=== PATIENT | female | born 1955 | race Caucasian/White ===

== ENCOUNTER 2017-01-25 09:42 | Inpatient (IN) | payer OTHER, MEDICARE ==
--- NOTE | 2017-01-18 07:45 | MH ---
cc: MARIANA PHILLIPS M.D. DATE OF ADMISSION: 01/27/2017 ADMITTING DIAGNOSIS: 1. Osteoarthritis of the right knee. 2. Patellofemoral disorder right knee. 3. Varus deformity right knee. 4. Pain right knee. 5. Gait disturbance. HISTORY OF PRESENT ILLNESS: The patient is a 61-year-old white female who has had a rather lengthy history of pain involving her right knee extending back for at least five years. The onset of her symptoms occurred when she was negotiating steps and experienced a popping sensation of the right knee with the onset of pain being noted. 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 She conformed to conservative management but noted lingering symptoms and when subsequently seen in February of 2012, x-ray studies were completed that did reveal obvious narrowing throughout the medial compartment associated with hypertrophic bony reaction involving the medial femoral condyle. At that time, the patient was prescribed Mobic and initiated into a course of physical therapy while being followed on an outpatient basis. Initially she felt there was a trend of improvement with regards to the medication as prescribed and thus elected to continue with conservative modalities. Unfortunately her symptoms gradually began to recur and when seen in follow-up several months thereafter, she was treated with an intraarticular steroid injection. Initially there was once again a trend of improvement for several months until the benefit of the injection began to wear off and thus had been recommended that the patient might consider proceeding with an MRI scan for further disposition. Unfortunately she elected to not proceed in this direction and continued with conservative management and subsequently underwent alternative orthopedic evaluation in August of 2015 at which time the patient reports that she was diagnosed as having moderate osteoarthritis of both knees with suspected multiple loose bodies on the right side. She apparently was prescribed hydrocodone for pain management. She returned to the undersigned physician in February of this past year and at that time reported ongoing pain involving both knees with x-ray studies revealing obvious degenerative changes throughout the medial compartment and secondary involvement patellofemoral articulation associated with a varus deformity. Findings and treatment options were reviewed including consideration for operative intervention with emphasis being made that the decision to proceed with surgery would be left entirely to the patient's discretion. She considered her options in this regard and subsequently indicated her desire to proceed with operative treatment, and in July of this past year she did undergo a left total knee arthroplasty, which was completed in an uncomplicated manner with an uneventful recovery being noted thereafter. With the passage of time; however, she became increasingly more symptomatic with pain involving her right knee and given a favorable response that she had noted from previous surgery had expressed her desire to proceed with similar treatment involving her right knee. Her current x-ray studies have confirmed the presence of significant degenerative changes throughout the medial compartment with associated varus deformity and secondary involvement of the patellofemoral articulation. In compliance with the patient's wishes, she has currently been scheduled for admission in order that right total knee replacement be completed. PAST MEDICAL HISTORY, HOSPITALIZATIONS AND SURGERIES: Her past medical history, hospitalizations and surgeries in addition to the left total knee arthroplasty described have included: 1. An abdominal hysterectomy. 2. Bilateral augmentation mammoplasty. 3. Tonsillectomy. 4. Laparotomy for history of abdominal adhesions. 5. Medical management for a suspected stroke. 6. Seizure disorder. The patient's medical illnesses include: 1. Bipolar disorder. 2. Fibromyalgia. 3. History of chronic neck and low back pain. MEDICATIONS: Her current medications are: 1. Meloxicam 10 milligrams daily. 2. Zolpidem 5 milligrams daily. 3. Loxapine 40 milligrams daily. 4. Trazodone 50 milligrams at bedtime. 5. Ziprasidone 20 milligrams twice daily. ALLERGIES: THE PATIENT DENIES ANY KNOWN DRUG ALLERGIES. REVIEW OF SYSTEMS: She wears glasses for reading purposes. There has been a history of headaches that she relates to degenerative disk disease of the cervical spine. There is a history of a seizure in the past and intermittent dizziness. Auditory acuity intact. No tinnitus. No bleeding gums or dysphagia. No cough, shortness of breath, upper respiratory infection, pneumonia or tuberculosis. No angina or heart disease. Appetite good. She has occasional constipation treated with [id number] products. No hepatitis, gallbladder disease, ulcers or hemorrhoids. No urinary tract infection. No kidney stones. She has had a fracture of the fifth metacarpal of her right hand treated nonoperatively and psychiatric intervention for bipolar disorder. Her remaining review of systems is unremarkable and noncontributory. FAMILY HISTORY: The patient has been for 12 years, this being a third marriage. Her has been treated in the recent past for history of osteomyelitis of his thoracic spine. No children. Family history is positive for diabetes, skin and breast cancer and multiple sclerosis. SOCIAL HISTORY: The patient completed a high school education. She is unemployed. She admits to at least a 30 pack/year use of tobacco averaging approximately 10 cigarettes daily. Ethanol consumption involving the cocktail several days per week. PHYSICAL EXAMINATION: HEIGHT: 5 feet 2 inches. WEIGHT: 107 pounds. GENERAL: An alert, oriented responsive 61-year-old white female who sits quietly upon examination table with no apparent distress. HEAD, EYES, EARS, NOSE, THROAT: Pupils are equal, round and reactive to light. Extraocular movements full. Sclerae clear. External nares clear. External auditory canals clear. Dental intact. Mucous membranes pink and moist. Pharynx clear. NECK: Supple. There is some limitation of mobility at the extremes of motion indicated to be chronic in nature. Carotid pulse bilaterally. Trachea midline. Thyroid without enlargement. LUNGS: Clear to auscultation and percussion. No CVA tenderness. No discomfort throughout the dorsal or lumbar spine. HEART: Regular rhythm. No murmur or gallop. ABDOMEN: Soft, nontender. Bowel sounds present. PELVIC: Per primary care physician. EXTREMITIES: Right knee. No obvious swelling or effusion. There is an obvious varus deformity. Slight medial joint line tenderness without palpable abnormality. Apprehension and compression signs negative. Limited mobility in the 100+ degree range of flexion with pain at the extreme of motion. No collateral ligamentous instability. Russell test and draw sign negative. Pivot shift and Priscila sign positive for medial compartment pain. Straight-leg raising unremarkable at 80 degrees. Satisfactory mobility of the right hip with no associated pain. Mild antalgic gait. NEUROLOGIC: Cranial nerves II-XII grossly intact. IMPRESSION: 1. Osteoarthritis right knee. 2. Patellofemoral disorder right knee. 3. Varus deformity right knee. 4. Pain right knee. 5. Gait disturbance. PLAN: Right total knee arthroplasty. The nature of the planned surgical procedure, the potential complications and risks associated, the expectations of surgery and the consent form have been thoroughly reviewed with Rocio prior to admission to the hospital. She has indicated her full understanding regarding all of the above and has given consent to proceed with treatment as outlined. Medical evaluation and clearance for surgery will be completed by her primary care physician, Dr. Juan Bonner. MD SHAKIRA Guillen/JASON /4:42 PM /7:45 AM
[~2017-01-25] VITALS: Ht 157.5 cm; Wt 49.5 kg
[2017-01-25] MEDS ORDERED: GABA600T PO (15:37)
[2017-01-25] MEDS ORDERED: HYDR-3516 PO (15:37)
[2017-01-25] MEDS ORDERED: ZIPR1CAP8 PO (15:37)
[2017-01-25] MEDS ORDERED: ZOLP5TAB3 PO (15:37)
[2017-01-25] MEDS ORDERED: ASPI325T PO (15:37)
[2017-01-25] MEDS ORDERED: LISI2.5T3 PO (15:37)
[2017-01-25] MEDS ORDERED: PROZ40CA PO (15:37)
[2017-01-27] MEDS ORDERED: INSULIN HUMAN REGULAR 1,000 UNITS/10 ML VIAL SQ PRN (06:00)
[2017-01-27] MEDS ORDERED: SODIUM CHLORID 0.9% 500 ML IV SCH (06:00)
[2017-01-27] MEDS: LACTATED RINGER'S 1000 ML IV SCH (06:00)
[2017-01-27] MEDS ORDERED: METOPROLOL TARTRATE 25 MG TAB PO PRN (06:00)
[2017-01-27 06:12] VITALS: BP 101/64; PULSE 62; RESP 20; TEMP 97.8; O2SAT 98
[2017-01-27] MEDS ORDERED: ceFAZolin 2 GM PREMIX 50 ML IV SCH (06:15)
[2017-01-27] MEDS: POVIDONE IODINE 7.5% SCRUB 118 ML BOTTLE TOP SCH (06:15)
[2017-01-27] MEDS ORDERED: TRANEXAMIC ACID 1 GM PRIOR TO PROCEDURE IV SCH ×2 (06:15)
[2017-01-27] MEDS ORDERED: TRANEXAMIC ACID 1 GM POST-OP IV SCH ×2 (06:15)
[2017-01-27 06:44] LABS: BASOPHIL % 0.6 % (0.0-2.0); EOSINOPHIL # 0.2 TH/MM3 (0-0.4); EOSINOPHIL % 3.3 % (0.0-4.0); HEMATOCRIT 38.5 % (35.0-46.0); HEMO FLAGS DIFF FINAL; LYMPH % 34.4 % (9.0-44.0); MEAN CORPUSCULAR HEMOGLOBIN 32.7 PG (27.0-34.0); MEAN CORPUSCULAR HGB CONC 34.8 % (32.0-36.0); NEUT % 49.7 % (16.0-70.0); PLATELET COUNT 289 TH/MM3 (150-450); WHITE BLOOD COUNT 5.9 TH/MM3 (4.0-11.0)
[2017-01-27] MEDS ORDERED: MIDAZOLAM HCL 5 MG/5 ML VIAL ONE (06:56)
[2017-01-27] MEDS ORDERED: DEXAMETHASONE SOD PHOS 4 MG/ML VIAL ONE (07:08)
[2017-01-27] MEDS ORDERED: FAMOTIDINE 20 MG/2 ML VIAL ONE (07:08)
[2017-01-27] MEDS ORDERED: BUPIVACAINE HCL PF 0.5% 30 ML VIAL NB ONE (07:56)
[2017-01-27] MEDS ORDERED: DEXAMETHASONE SOD PHOS PF 10 MG/ML VIAL IV ONE (07:57)
[2017-01-27] MEDS ORDERED: ceFAZolin INJ 1,000 MG VIAL TOPICAL ONE (08:02)
[2017-01-27] MEDS ORDERED: ACETAMINOPHEN 1000 MG/100 ML VIAL IV ONE (08:50)
[2017-01-27] MEDS ORDERED: MORPHINE SULFATE 4 MG/ML INJ ONE (09:43)
[2017-01-27] MEDS: DEXT 5%-NACL 0.45% 1000 ML INJ 1,000 ML IV SCH ×3 (09:44→21:04)
[2017-01-27] MEDS ORDERED: PROMETHAZINE INJ 25 MG/ML VIAL IM PRN (09:45)
[2017-01-27] MEDS ORDERED: ACETAMINOPHEN 325 MG TAB PO PRN (09:45)
[2017-01-27] MEDS ORDERED: diphenhydrAMINE HCL 25 MG CAP PO PRN (09:45)
[2017-01-27] MEDS ORDERED: BISACODYL 10 MG SUPP PR PRN (09:45)
[2017-01-27] MEDS ORDERED: SODIUM CHLORIDE 0.9% FLUSH 5 ML FLUSH IVF PRN (09:45)
[2017-01-27] MEDS ORDERED: MISCELLANEOUS PHARMACY INFORMATION XX ONE (09:45)
[2017-01-27] MEDS ORDERED: ONDANSETRON HCL 4 MG/2 ML VIAL IVP PRN (09:45)
[2017-01-27] MEDS ORDERED: DOCUSATE SODIUM 100 MG CAP PO PRN (09:45)
[2017-01-27] MEDS ORDERED: MAGNESIUM HYDROXIDE SUSP 30 ML CUP PO PRN (09:45)
[2017-01-27] MEDS ORDERED: Post-op Orders (for Pharmacy) MISC XX ONE (09:45)
[2017-01-27] MEDS ORDERED: NALOXONE HCL 0.4 MG/ML AMP IV PRN (09:45)
[2017-01-27] MEDS ORDERED: DO NOT ADM ANY ANTICOAGULANT DRUGS XX PRN (10:15)
[2017-01-27] MEDS: MORPHINE SULFATE 30 MG/30 ML PCA IV SCH ×2 (10:21→19:33)
[2017-01-27] MEDS ORDERED: TRANEXAMIC ACID INJ 1,000 MG in SODIUM CHLORIDE 0.9% INJ 100 ML IV SCH (10:30)
--- NOTE | 2017-01-27 10:35 | RADRPT ---
EXAM DATE/TIME: 01/27/2017 09:52 [facility] COMPARISON: KNEE LEFT LTD (1 OR 2VWS), August 26, 2016, 10:47. INDICATIONS : Post op right knee replacement. MEDICAL HISTORY : None. SURGICAL HISTORY : None. ENCOUNTER: Initial ACUITY: 1 day PAIN SCORE: 0/10 LOCATION: Right knee. FINDINGS: The patient is status post right knee arthroplasty. The orthopedic hardware is in excellent position . A surgical drain is in place. CONCLUSION: 1. Uncomplicated right knee arthroplasty. Jan Briones MD on January 27, 2017 at 10:33 Board Certified Radiologist. This report was verified electronically.
[2017-01-27] MEDS ORDERED: ZOLPIDEM TARTRATE 5 MG TAB PO PRN (11:00)
[2017-01-27] MEDS ORDERED: ACETAMINOPHEN/HYDROcodone 325 MG/5 MG TAB PO PRN (11:00)
--- NOTE | 2017-01-27 11:08 | PD.CONS ---
HPI Service [facility] Hospitalists Consult Requested By thom Mayer Reason for Consult medical management Primary Care Physician Juan Bonner MD Diagnoses: History of Present Illness 61 yo male with PMH of HTN, bipolar disorder, osteoarthritis. Came to same day surgery for right knee surgery by thom Mayer. The hospitalist is consulted for medical management. VS are stable. Patient has no symptoms Review of Systems Except as stated in HPI: all other systems reviewed are Neg 12 syste, ROS reviewed and negative except as mentioned in HPI Past Family Social History Allergies: Coded Allergies: Toradol (Verified Allergy, Unknown, Rash, 01/27/17) No Known Allergies (Unverified , 01/25/17) Past Medical History Bipolar disorder Chronic neck and back pain Bilateral Knee OA Past Surgical History Abdominal hysterectomy. Bilateral augmentation mammoplasty. Tonsillectomy. Laparotomy for a history of abdominal adhesions. Left Knee arthroplasty 2015 Reported Medications Reported Meds & Active Scripts Active Reported Prozac (Fluoxetine HCl) 40 Mg Cap 40 Mg PO DAILY Lisinopril 2.5 Mg Tab 2.5 Mg PO HS Zolpidem (Zolpidem Tartrate) 5 Mg Tab 5 Mg PO HS PRN Ziprasidone 40 Mg Cap 40 Mg PO BID Hydrocodone-Acetaminophen 5-325 mg Tab 2 Tab PO Q4H PRN Aspirin 325 Mg Tab 325 Mg PO BID Gabapentin 600 Mg Tab 600 Mg PO TID Family History Family history positive for diabetes, skin and breast cancer, multiple sclerosis Social History Tobacco use: 2 packs per week however has been smoking for the past 3 days. She denies any illicit drug use or EtOH use. Physical Exam Vital Signs Vital Signs Date Time Temp Pulse Resp B/P Pulse Ox O2 Delivery O2 Flow Rate FiO2 01/27/17 10:30 79 12 123/82 99 Nasal Cannula 2 01/27/17 10:21 16 01/27/17 10:15 78 12 122/83 98 Nasal Cannula 3 01/27/17 10:00 81 12 113/54 98 Nasal Cannula 3 01/27/17 09:40 97.5 85 12 113/76 96 Nasal Cannula 3 01/27/17 07:15 69 14 97/64 94 01/27/17 07:00 65 14 114/75 100 01/27/17 06:45 100 Nasal Cannula 2 01/27/17 06:45 70 16 107/68 100 01/27/17 06:12 97.8 62 20 101/64 98 Physical Exam GENERAL: This is a well-nourished, well-developed patient, in no apparent distress. SKIN: No rashes, ecchymoses or lesions. Cool and dry. HEAD: Atraumatic. Normocephalic. No temporal or scalp tenderness. EYES: Pupils equal round and reactive. Extraocular motions intact. No scleral icterus. No injection or drainage. ENT: Nose without bleeding, purulent drainage or septal hematoma. Throat without erythema, tonsillar hypertrophy or exudate. Uvula midline. Airway patent. NECK: Trachea midline. No JVD or lymphadenopathy. Supple, nontender, no meningeal signs. CARDIOVASCULAR: Regular rate and rhythm without murmurs, gallops, or rubs. RESPIRATORY: Clear to auscultation. Breath sounds equal bilaterally. No wheezes , rales, or rhonchi. GASTROINTESTINAL: Abdomen soft, non-tender, nondistended. No hepato-splenomegaly , or palpable masses. No guarding. MUSCULOSKELETAL: S/P right knee surgery. Left knee with surgical scar from previous surgery. Extremities without clubbing, cyanosis, or edema. No joint tenderness, effusion, or edema noted. No calf tenderness. Negative Homans sign bilaterally. NEUROLOGICAL: Awake and alert. Cranial nerves II through XII intact. Motor and sensory grossly within normal limits. Five out of 5 muscle strength in all muscle groups. Normal speech. Laboratory Laboratory Tests Test 01/27/17 06:25 White Blood Count 5.9 Red Blood Count 4.10 Hemoglobin 13.4 Hematocrit 38.5 Mean Corpuscular Volume 94.0 Mean Corpuscular Hemoglobin 32.7 Mean Corpuscular Hemoglobin 34.8 Concent Red Cell Distribution Width 13.0 Platelet Count 289 Mean Platelet Volume 6.8 Neutrophils (%) (Auto) 49.7 Lymphocytes (%) (Auto) 34.4 Monocytes (%) (Auto) 12.0 Eosinophils (%) (Auto) 3.3 Basophils (%) (Auto) 0.6 Neutrophils # (Auto) 3.0 Lymphocytes # (Auto) 2.0 Monocytes # (Auto) 0.7 Eosinophils # (Auto) 0.2 Basophils # (Auto) 0.0 CBC Comment DIFF FINAL Differential Comment Blood Type O POSITIVE Antibody Screen NEGATIVE Result Diagram: 01/27/17 0625 Imaging Last Impressions Knee X-Ray 01/27/17 0944 Signed Impressions: Service Date/Time: Friday, January 27, 2017 09:52 - CONCLUSION: 1. Uncomplicated right knee arthroplasty. Jan Briones MD Assessment and Plan Assessment and Plan 61-year-old female with 1-Right knee osteoarthritis: Status post left total knee arthroplasty 08/26/16 ; regiment per orthopedic surgery. Continue current postop care with IV antibiotics, [employer] pump, 0-4 DVT. PT consult to treat and eval. IS at the bedside. 2-History of bipolar disorder: Continue outpatient medications 3-Other chronic medical conditions: Resume home medications 4-DVT prophylaxis: per surgeon Thank you for this consultation Code Status Full code Discussed Condition With Patient, nurse Leatha Villa MD Jan 27, 2017 11:08
[2017-01-27] MEDS ORDERED: ONDANSETRON HCL 4 MG/2 ML VIAL IV PUSH ONE (11:43)
[2017-01-27] MEDS ORDERED: ePHEDrine/NS 25 MG/5 ML SYR IV ONE (11:43)
[2017-01-27] MEDS ORDERED: PROPOFOL 200 MG/20 ML AMP IV ONE (11:43)
[2017-01-27] MEDS ORDERED: LACTATED RINGER'S 1000 ML INJ 1,000 ML IV ONE (11:43)
--- NOTE | 2017-01-27 13:20 | MP ---
cc: MARIANA JORGE MD DATE OF SURGERY 01/27/2017 PREOPERATIVE DIAGNOSIS Osteoarthritis of the right knee, patellofemoral disorder right knee, varus deformity right knee, pain right knee and gait disturbance. POSTOPERATIVE DIAGNOSIS Osteoarthritis of the right knee, patellofemoral disorder right knee, varus deformity right knee, pain right knee and gait disturbance. PROCEDURE Right total knee arthroplasty SURGEON Mariana Jorge MD ANESTHESIA Spinal INDICATIONS A 61-year-old white female with a lengthy history of pain involving her right knee for least a five year interval of time. She had noted the onset of symptoms as she was negotiating steps and experienced a popping sensation about the right knee with the onset of pain being noted. 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 She conformed to conservative management with lingering symptoms being noted and then in February of 2012 x-ray studies were completed that did reveal obvious narrowing throughout the medial compartment associated with hypertrophic bony reaction involving the medial femoral condyle. At that time, the patient was prescribed Mobic and initiated into a course of physical therapy while being followed on an outpatient basis. Initially, she experience some trend of improvement and elected to continue with conservative modalities. Unfortunately her symptoms gradually began to recur and was seen in follow-up several months thereafter. She received an intra-articular steroid injection. Once again, there was only a slight trend of improvement for several months until the benefit of the injection began to wear off and the patient subsequently was advised to consider an MRI scan evaluation. She declined in this regard and continued with conservative modalities and later underwent an alternate orthopedic evaluation at which time she was diagnosed as having moderate osteoarthritis of both knees with suspected multiple loose bodies on the right side. She apparently was prescribed hydrocodone for pain management. She returned to the undersigned physician in February of this past year and at that time reported ongoing pain involving both knees with x-ray studies revealing obvious degenerative changes throughout the medial compartment and involving the patellofemoral articulation with an associated varus deformity. Findings and treatment options were reviewed and thus in July of this past year, the patient did undergo a left total knee arthroplasty which was completed an uncomplicated manner with an uneventful recovery being noted thereafter. With the passage of time, she became increasingly more symptomatic with pain involving her right knee and given the favorable response that she had noted from previous surgery, she expressed her desire to proceed with similar treatment involving her right knee. Her current x-ray studies confirmed the presence of significant degenerative changes throughout the medial compartment with near [id number] apposition associated with a varus deformity and secondary involvement of the patellofemoral articulation. In compliance with the patient's wishes, she was scheduled for admission at this time in order that right total knee replacement be completed. FORMAT Following induction of satisfactory spinal anesthesia as completed per the Department of Anesthesia, a tourniquet was established around the proximal portion of the right lower extremity. The extremity proper was isolated with a U drape thereafter being prepped with Betadine solution and draped into a sterile field in the routine manner. Prior to initiation of the actual procedure, the standard time-out protocol was completed. All parameters were appropriately addressed and confirmed by operating room personnel. The extremity was elevated for approximately one minute and the tourniquet thus inflated to 250 mmHg pressure. A sharp skin incision was initiated midline over the anterior aspect of the knee and developed underlying subcutaneous tissue with hemostasis maintained by electrocautery. By deepening dissection, the anterior capsule was exposed. A medial capsulotomy completed and the patella subluxed in a lateral orientation. Examination of the joint space revealed severe degenerative changes of a tricompartmental nature but being most pronounced throughout the medial compartment where there was near complete erosion of articular cartilage and underlying subchondral bone exposed. No significant remnant of the anterior cruciate ligament was identified. The articular surface of the patella was resected with a power saw. The three holed guide was utilized for establishing post holes and thereafter the remnants of the medial and lateral meniscus structures were sharply excised. A centering hole was placed in the distal aspect of the femur allowing positioning of the intramedullary guide. The distal femoral cutting jig was attached and the distal femur resected. AP measurement noted 60 mm sizing to be appropriate. The matching cutting block was positioned. Anterior, posterior and chamfer cuts were completed. The tibial plateau was thereafter subluxed in an anterior orientation allowing positioning of the extramedullary guide. The tibial plateau was resected and measured with 67 mm sizing determined to be appropriate. Prior to application of trial components, multiple loose bodies were removed throughout the posterior aspect of the joint and extending into the popliteal region. A trial reduction followed utilizing a 60 mm anatomic femoral component, a 67 mm tibial base with both 10 and 12 mm bearing inserts trialed, a 12-mm thickness was determined to be the more favorable fit. The knee was readily brought to full extension. There was no laxity to varus valgus stress at both zero and 90 degrees flexed posture. Orientation was confirmed as being appropriate with measurement of the pelvic guide through the mechanical axis of the knee. A trial reduction thereafter was completed utilizing a 28 mm standard patellar button. Once again, good tracking demonstrated with no tendency toward subluxation. All trial components being removed, the remaining portion of the proximal tibia was prepared for insertion of the permanent component. An autogenous bone plug was thereafter inserted into the distal femoral guide hole and thereafter a preparation of cobalt bone cement was utilized in inserting knee components in a sequential fashion which included a 67 mm fixed cruciate tibial plate to which a 12 mm Vanguard tibial bearing insert was secured with locking hsieh. The 60 mm vanguard femoral component was firmly seated onto the distal femur, excess cement being removed, the knee was brought to full extension and thereafter the 28 mm standard three post patellar button was attached and maintained in place with patellar clamp while cement hardening was completed. Final range of motion assessment noted good tracking and stability throughout the knee. Irrigation was repeated with hemostasis maintained. Automatic drain tubes were inserted through superior stab wounds. The capsule was repaired with 0 Vicryl suture. The remaining portion of the wound was closed in layers in the routine manner. Skin margins being reapproximated with a running subcuticular 3-0 Vicryl suture over which Steri-Strips were applied. Xeroform gauze and a bulky dry sterile dressing placed. Tourniquet had been deflated after 40 minutes of tourniquet time, the extremity being supported in a canvas knee splint. Anesthesia was discontinued and the patient thus transferred to a hospital bed and returned to the recovery room in satisfactory condition having tolerated her operative procedure well. Estimated blood loss was approximately 50 cc as determined per anesthesia. All implants were of the [employer] manufacture. MD SHAKIRA Guillen/YESSY /9:37 AM /1:03 PM
[2017-01-27 13:40] VITALS: BP 111/70; PULSE 89; RESP 18; TEMP 95.9; O2SAT 100
[2017-01-27] MEDS: GABAPENTIN 300 MG CAP PO SCH ×2 (13:45→16:58)
[2017-01-27] MEDS: PCA - TOTAL MG MORPHINE DELIVERED PER SHIFT SCH ×2 (14:00→21:09)
[2017-01-27 15:55] VITALS: O2SAT 98
[2017-01-27 19:40] VITALS: BP 109/63; PULSE 85; RESP 16; TEMP 97.9; O2SAT 97
[2017-01-27] MEDS: SODIUM CHLORIDE 0.9% FLUSH 5 ML FLUSH IVF SCH (21:00)
[2017-01-27] MEDS: ZIPRASIDONE HCL 40 MG CAP PO SCH (21:06)
[2017-01-27] MEDS: LISINOPRIL 5 MG TAB PO SCH (21:06)
[2017-01-27] MEDS: ZOLPIDEM TARTRATE 5 MG TAB PO PRN (22:06)
[2017-01-28] VITALS (7 sets, daily range): BP systolic 94–125; BP diastolic 52–79; PULSE 81–90; RESP 16–19; TEMP 96–97.9; O2SAT 94–98
[2017-01-28 05:55] LABS: HEMATOCRIT 31.2 % (35.0-46.0); REVIEW FLAG FINAL
[2017-01-28] MEDS ORDERED: ASPI325T PO (05:56)
[2017-01-28] MEDS ORDERED: HYDR-3516 PO (05:56)
--- NOTE | 2017-01-28 05:58 | HHI.FF ---
Face to Face Verification Diagnosis: (1) DJD (degenerative joint disease) of knee Physical Therapy Gait training Knee: Total knee, Protocol: Right, Full weight bearing Right LE Weight Bearing: WB as tolerated Right LE Range of Motion: Active ROM Nursing Dressing Changes: Daily dressing change I have seen patient Rocio Lucio on 01/28/17. My clinical findings support the need for the requested home health care services because: Limited ability to care for self High risk of falls I certify that my clinical findings support that this patient is homebound because: Post-op weakness Unsteady gait/balance Unsafe to leave home unassisted Mian Jorge MD Jan 28, 2017 05:58
[2017-01-28] MEDS: PCA - TOTAL MG MORPHINE DELIVERED PER SHIFT SCH ×3 (06:00→21:47)
[2017-01-28] MEDS: LACTATED RINGER'S 1000 ML IV SCH (06:00)
[2017-01-28] MEDS ORDERED: MISC-274 (06:01)
[2017-01-28] MEDS: DEXT 5%-NACL 0.45% 1000 ML INJ 1,000 ML IV SCH ×2 (06:14→17:44)
[2017-01-28] MEDS: POVIDONE IODINE 7.5% SCRUB 118 ML BOTTLE TOP SCH (06:15)
[2017-01-28] MEDS: ZIPRASIDONE HCL 40 MG CAP PO SCH ×2 (08:40→20:23)
[2017-01-28] MEDS: GABAPENTIN 300 MG CAP PO SCH ×3 (08:40→17:55)
[2017-01-28] MEDS: FLUoxetine HCL 20 MG CAP PO SCH (08:41)
[2017-01-28] MEDS: SODIUM CHLORIDE 0.9% FLUSH 5 ML FLUSH IVF SCH ×2 (08:41→20:26)
[2017-01-28] MEDS: RIVAROXABAN 10 MG TAB PO SCH (08:41)
--- NOTE | 2017-01-28 09:01 | HHI.PR ---
Subjective Remarks pain controlled. tolerating diet. Objective Vitals Vital Signs Date Time Temp Pulse Resp B/P Pulse Ox O2 Delivery O2 Flow Rate FiO2 01/28/17 08:04 97.9 88 18 94/52 96 01/28/17 07:35 98 21 01/28/17 06:00 16 01/28/17 04:07 96.0 88 19 125/79 96 01/28/17 00:08 97.3 90 17 103/65 94 01/27/17 21:09 16 01/27/17 19:40 97.9 85 16 109/63 97 01/27/17 19:33 15 01/27/17 15:55 98 Nasal Cannula 2.00 01/27/17 14:00 16 01/27/17 13:40 95.9 89 18 111/70 100 01/27/17 12:35 89 13 112/71 97 Nasal Cannula 2 01/27/17 12:00 97.0 84 13 125/81 97 Nasal Cannula 2 01/27/17 11:00 79 13 121/80 97 Nasal Cannula 2 01/27/17 10:30 79 12 123/82 99 Nasal Cannula 2 01/27/17 10:21 16 01/27/17 10:15 78 12 122/83 98 Nasal Cannula 3 01/27/17 10:00 81 12 113/54 98 Nasal Cannula 3 01/27/17 09:40 97.5 85 12 113/76 96 Nasal Cannula 3 I/O 01/27/17 01/27/17 01/27/17 01/28/17 01/28/17 01/28/17 07:00 15:00 23:00 07:00 15:00 23:00 Intake Total 1820 ml 360 ml 2117 ml Output Total 50 ml 60 ml 80 ml Balance 1770 ml 300 ml 2037 ml Intake Oral 720 ml 360 ml 360 ml IV Total 1757 ml Other 1100 ml Output Urine Total 0 ml Drainage Total 60 ml 80 ml Estimated Blood Loss 50 ml # Voids 2 3 3 # Bowel Movements 0 0 Result Diagram: 01/28/17 0437 Objective Remarks GENERAL: This is a well-nourished, well-developed patient, in no apparent distress. CARDIOVASCULAR: Regular rate and rhythm w RESPIRATORY: Clear to auscultation. Breath sounds equal bilaterally. No wheezes , rales, or rhonchi. GASTROINTESTINAL: Abdomen soft, non-tender, nondistended. Normal active bowel sounds MUSCULOSKELETAL: Extremities without clubbing, cyanosis, or edema. Right knee bandage clean dry intact. Drain in place. A/P Assessment and Plan 1-Right knee osteoarthritis Status post operative day #1 right total knee arthroplasty - continue postoperative care, pain control, physical therapy per orthopedic surgery. 2-History of bipolar disorder: Continue outpatient medications, Geodon and Prozac 3-Other chronic medical conditions: Resume home medications 4. Borderline hypertensionhold parameters for home lisinopril., Patient currently asymptomatic 5 -DVT prophylaxis: Nyasia Medina MD Jan 28, 2017 09:01
[2017-01-28] MEDS: MORPHINE SULFATE 30 MG/30 ML PCA IV SCH (10:16)
[2017-01-28] MEDS: MAGNESIUM HYDROXIDE SUSP 30 ML CUP PO SCH ×2 (12:33→20:24)
[2017-01-28] MEDS: ACETAMINOPHEN/HYDROcodone 325 MG/5 MG TAB PO PRN ×2 (17:42→21:37)
[2017-01-28] MEDS: LISINOPRIL 5 MG TAB PO SCH (20:23)
[2017-01-28] MEDS: ZOLPIDEM TARTRATE 5 MG TAB PO PRN ×2 (20:29→21:37)
[2017-01-28] MEDS ORDERED: SENNOSIDES 8.6 MG TAB PO SCH (21:00)
[2017-01-29] VITALS: BP 100/60; PULSE 100; RESP 16; TEMP 96.3; O2SAT 92
[2017-01-29 04:00] VITALS: BP 120/72; PULSE 102; RESP 20; TEMP 98.2; O2SAT 93
[2017-01-29] MEDS: ACETAMINOPHEN/HYDROcodone 325 MG/5 MG TAB PO PRN ×4 (04:14→16:18)
[2017-01-29] MEDS: PCA - TOTAL MG MORPHINE DELIVERED PER SHIFT SCH (05:45)
[2017-01-29 08:06] VITALS: BP 99/67; PULSE 96; RESP 16; TEMP 98; O2SAT 94
--- NOTE | 2017-01-29 08:54 | HHI.PR ---
Subjective Remarks Doing okay. No dizziness or lightheadedness. Pain control. No other complaints. Objective Vitals Vital Signs Date Time Temp Pulse Resp B/P Pulse Ox O2 Delivery O2 Flow Rate FiO2 01/29/17 08:06 98.0 96 16 99/67 94 01/29/17 05:45 18 01/29/17 04:00 98.2 102 20 120/72 93 01/29/17 00:00 96.3 100 16 100/60 92 01/28/17 21:47 17 01/28/17 20:00 97.7 89 18 107/66 96 01/28/17 16:00 97.4 81 16 108/64 97 01/28/17 14:00 18 01/28/17 12:06 97.8 84 16 106/79 97 01/28/17 10:21 16 01/28/17 10:16 16 I/O 01/28/17 01/28/17 01/28/17 01/29/17 01/29/17 01/29/17 07:00 15:00 23:00 07:00 15:00 23:00 Intake Total 2117 ml 1446 ml 480 ml 240 ml Output Total 80 ml 95 ml Balance 2037 ml 1446 ml 385 ml 240 ml Intake Oral 360 ml 890 ml 480 ml 240 ml IV Total 1757 ml 556 ml Drainage Total 80 ml 95 ml # Voids 3 3 1 1 # Bowel Movements 0 0 0 Result Diagram: 01/28/17 0437 Objective Remarks GENERAL: This is a well-nourished, well-developed patient, in no apparent distress. CARDIOVASCULAR: Regular rate and rhythm RESPIRATORY: Clear to auscultation. Breath sounds equal bilaterally. No wheezes , rales, or rhonchi. GASTROINTESTINAL: Abdomen soft, non-tender, nondistended. Normal active bowel sounds MUSCULOSKELETAL: Extremities without clubbing, cyanosis, or edema. Right knee bandage clean dry intact. A/P Assessment and Plan 1-Right knee osteoarthritis Status post operative day #2 right total knee arthroplasty - continue postoperative care, pain control, physical therapy per orthopedic surgery. 2-History of bipolar disorder: Continue outpatient medications, Geodon and Prozac 3-Other chronic medical conditions: Resume home medications 4. Borderline hypotensiondiscontinue home lisinopril. She states that she does not have a history of hypertension. She does not understand why her primary care physician has prescribed lisinopril. She was advised to follow-up with primary care physician concerning taking lisinopril. At this time will discontinue due to borderline hypotension and known sinus hypertension or renal issues 5 -DVT prophylaxis: Xarelto Discharge Planning To rehabilitation when clear by orthopedics Nyasia Keenan MD Jan 29, 2017 08:54
[2017-01-29] MEDS: MAGNESIUM HYDROXIDE SUSP 30 ML CUP PO SCH (09:23)
[2017-01-29] MEDS: ZIPRASIDONE HCL 40 MG CAP PO SCH (09:23)
[2017-01-29] MEDS: FLUoxetine HCL 20 MG CAP PO SCH (09:24)
[2017-01-29] MEDS: GABAPENTIN 300 MG CAP PO SCH ×2 (09:24→12:58)
[2017-01-29] MEDS: RIVAROXABAN 10 MG TAB PO SCH (09:24)
[2017-01-29] MEDS: SODIUM CHLORIDE 0.9% FLUSH 5 ML FLUSH IVF SCH (09:25)
[2017-01-29 12:02] VITALS: BP 101/64; PULSE 92; RESP 16; TEMP 97.9; O2SAT 96
--- NOTE | 2017-02-01 13:07 | MD ---
cc: JUAN VENTURA MD, NORMAN B. M.D. ADMISSION DATE: 01/27/2017 DISCHARGE DATE: 01/29/2017 ADMISSION DIAGNOSIS Osteoarthritis of the right knee. Patellofemoral disorder right knee. Varus deformity right knee. Pain right knee. Gait disturbance. DISCHARGE DIAGNOSIS Osteoarthritis of the right knee. Patellofemoral disorder right knee. Varus deformity right knee. Pain right knee. Gait disturbance. HISTORY A 61-year-old white female with a lengthy history of pain involving her right knee extending back at least 5 years when she had noted the onset of her discomfort while negotiating steps and experienced a popping sensation of the right knee with the onset of pain being noted. 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 She conformed to conservative management at that time but noted lingering symptoms and was later seen in February of 2012 at which time x-ray studies did reveal obvious narrowing throughout the medial compartment associated with hypertrophic bony reaction involving the medial femoral condyle. The patient was prescribed Mobic and initiated into a course of physical therapy while being followed on an outpatient basis. Initially she felt there was a trend of improvement with regards to the medication prescribed and thus elected to continue with conservative modalities. Unfortunately her symptoms gradually began to recur when seen in follow-up several months and thereafter she was treated with an intraarticular steroid injection. Initially there was once again a trend of improvement for several months until the benefit of the injection began to wear off and the patient was advised to consider MRI scan examination. The patient declined in this regard and later underwent an alternate orthopedic evaluation in August of 2015 at which time she reports she was diagnosed as having moderate osteoarthritis in both knees with suspected multiple loose bodies on the right side. She was prescribed hydrocodone for pain management. She returned to the undersigned physician in February of this past year and at that time reported ongoing pain involving both knees with x-ray studies demonstrating obvious degenerative changes throughout the medial compartment and secondary involvement of the patellofemoral articulation with associated varus deformity. Findings and treatment options were reviewed including consideration for operative intervention with emphasis being made that the decision to proceed with surgery would be left entirely to the patient's discretion. She considered her options in this regard and subsequently indicated her desire to proceed with operative treatment and in July of this past year she did undergo a left total knee arthroplasty which was completed in an uncomplicated manner with an uneventful recovery being noted thereafter. With the passage of time, however, she began to note progressive pain involving her right knee for which she returned to the office in follow-up disposition. At that time her treatment options were again reviewed. Given the favorable response that she had experienced some previous surgery of her left knee, she expressed her desire to proceed with similar treatment involving her right knee. Her current x-ray studies did confirm the presence of significant degenerative changes throughout the medial compartment with associated varus deformity and secondary involvement of the patellofemoral articulation. In compliance with her wishes she was scheduled for admission in order that right total knee replacement be completed. PHYSICAL EXAMINATION Her physical examination at the time of admission revealed no obvious swelling or effusion about the right knee. There was an obvious varus deformity with medial joint line tenderness. Apprehension and compression sign were negative. Limited mobility in the 100+ degree range of flexion with pain at the extreme of motion. No collateral ligamentous instability. Russell test and drawer sign negative. Pivot shift and Priscila sign positive for medial compartment pain. Straight-leg raising unremarkable at 80 degrees. Satisfactory mobility of the right hip with no associated pain. Mild antalgic gait. HOSPITAL COURSE Prior to admission to the hospital the patient underwent medical evaluation and clearance for surgery as completed with her primary care physician Dr. Juan Ventura. She was taken to the operating room on January 27, 2017, and on that date underwent a right total knee arthroplasty completed in an uncomplicated manner. The patient was noted to have tolerated her operative procedure well and her postoperative course was stable thereafter. She was progressively mobilized under the guidance of physical therapy being permitted weightbearing to tolerance about the right lower extremity. Follow-up examination of her surgical wound noted to be intact, healing favorably, no evidence of infection. Medical followup per the hospitalist service. DVT prophylaxis initiated. Clipper Counters consulted to assist with discharge planning. Hemoglobin/hematocrit assessment postoperatively was 11 and 31.2 respectively. The patient expressed her desire for rehab placement following discharge from the hospital. Plans were finalized through the assistance of the Social Service Department and pending medical clearance the patient was scheduled for transfer on the third postoperative day at which time she was noted to be making favorable progress with regards to her rehab program. She was scheduled to be seen in office followup in approximately four weeks. Her condition at time of transfer was stable, prognosis favorable. DISCHARGE MEDICATIONS 1. Hydrocodone #60. 2. Aspirin 325 mg one tablet twice daily for three weeks #40. MD SHAKIRA Guillen/SSB /6:19 AM /12:57 PM
== END 2017-01-29 17:04 | DRG 470 ==
LOC: HSDI 01-27 05:25 → N06A 01-27 13:29
PROVIDERS: ADMIT Orthopaedic Surgery; ATTEND Orthopaedic Surgery
PROC: 0QRD0JZ Replacement of Right Patella with Synthetic Substitute, Open Approach (ICD-10-PCS; 2017-01-27)
PROC: 0SRC0J9 Replacement of Right Knee Joint with Synthetic Substitute, Cemented, Open Approach (ICD-10-PCS; principal; 2017-01-27 07:23)
DX: M17.11 Unilateral primary osteoarthritis, right knee (principal); I95.9 Hypotension, unspecified; I10 Essential (primary) hypertension; F31.9 Bipolar disorder, unspecified; G40.909 Epilepsy, unspecified, not intractable, without status epilepticus; M21.161 Varus deformity, not elsewhere classified, right knee; Z96.652 Presence of left artificial knee joint; M79.7 Fibromyalgia; M54.5 Low back pain; G89.29 Other chronic pain; M50.30 Other cervical disc degeneration, unspecified cervical region; M71.21 Synovial cyst of popliteal space [Baker], right knee; F17.210 Nicotine dependence, cigarettes, uncomplicated
CPT/HCPCS: 73560; 85014; 85018; 85025; 86850; 86900; 86901; 88300; 88305; 94150; C1776; J0131; J0690; J1100; J2250; J2270; J2405; J7120; L1830

== ENCOUNTER 2017-02-24 11:55 | Emergency (ER) | payer MEDICARE, OTHER ==
[~2017-02-24] VITALS: Ht 157.5 cm; Wt 49.0 kg
[~2017-02-24 11:55] MED LIST: ASPI325T PO; GABA600T PO; HYDR-3516 PO; LISI2.5T3 PO; MISC-274; PROZ40CA PO; ZIPR1CAP8 PO; ZOLP5TAB3 PO
[2017-02-24 12:06] VITALS: BP 94/64; PULSE 71; RESP 18; TEMP 98; O2SAT 98
[2017-02-24] MEDS ORDERED: SODIUM CHLORIDE 0.9% FLUSH 10 ML FLUSH IVF PRN (12:15)
[2017-02-24] MEDS ORDERED: ONDANSETRON HCL 4 MG/2 ML VIAL IVP ONE (12:15)
[2017-02-24] MEDS ORDERED: SODIUM CHLOR 0.9% 1000 ML INJ 1,000 ML IV ONE ×2 (12:15→14:00)
--- NOTE | 2017-02-24 12:21 | PD ---
HPI . Syncope Chief Complaint: Syncope/Near-Syncope Time Seen by Provider: 12:09 Travel History International Travel<30 days: No Contact w/Intl Traveler<30days: No Traveled to known affect area: No History of Present Illness HPI Patient presents to us via [facility] following a syncopal episode. Patient reports that she's been sick for about 10 days with vomiting. The episodes of emesis per hour. She has not been having diarrhea. His she's been drinking water to try to stay hydrated. She reports associated chills. She also reports some myalgias and headache. [id number]: Syncope DURATION: Brief CONTEXT: Associated with a prolonged illness with vomiting MODIFYING FACTORS: ASSOCIATED SYMPTOMS: Fever and chills PFSH Past Medical History Cancer: No Cardiovascular Problems: No Cerebrovascular Accident: Yes Diabetes: No Endocrine: No Genitourinary: No Hepatitis: No Hiatal Hernia: No Musculoskeletal: Yes (arthritis) Neurologic: Yes (stroke and seizure 2011) Psychiatric: Yes (bipolar, anxiety) Reproductive: No Respiratory: No Thyroid Disease: No ?: Not Past Surgical History Abdominal Surgery: No AICD: No Body Medical Devices: BREASTS Cardiac Surgery: No Ear Surgery: No Endocrine Surgery: No Eye Surgery: No Genitourinary Surgery: No Gynecologic Surgery: Yes (hysterectomy 1999) Hysterectomy: Yes Joint Replacement: Yes (left knee) Oral Surgery: Yes (tonsillectomy) Pacemaker: No Thoracic Surgery: Yes (BREAST AUGMENTATION 1979, 2004) Social History Tobacco Use: Yes Substance Use: No Allergies-Medications (Allergen,Severity, Reaction): Coded Allergies: Toradol (Verified Allergy, Unknown, Rash, 02/24/17) Reported Meds & Prescriptions Reported Meds & Active Scripts Active Zofran Odt (Ondansetron Odt) 4 Mg Tab 4 Mg SL Q6HR PRN Phenergan (Promethazine HCl) 25 Mg Tab 25 Mg PO Q6H PRN Folding Walker/5" Wheels (Device) 1 Mis Mis 1 Each .ROUTE DIRECTED PRN as directed Hydrocodone-Acetaminophen 5-325 mg Tab 2 Tab PO Q4H PRN Reported Trazodone (Trazodone HCl) 50 Mg Tab 50 Mg PO HS PRN Prozac (Fluoxetine HCl) 40 Mg Cap 40 Mg PO DAILY Lisinopril 2.5 Mg Tab 2.5 Mg PO HS Zolpidem (Zolpidem Tartrate) 5 Mg Tab 5 Mg PO HS PRN Ziprasidone 40 Mg Cap 40 Mg PO BID Hydrocodone-Acetaminophen 5-325 mg Tab 2 Tab PO Q4H PRN Aspirin 325 Mg Tab 325 Mg PO DAILY Gabapentin 600 Mg Tab 600 Mg PO TID Review of Systems Except as stated in HPI: all other systems reviewed are Neg General / Constitutional: Positive: Fever, Chills Eyes: No: Diploplia, Blurred Vision HENT: Positive: Headaches Cardiovascular: No: Chest Pain or Discomfort Respiratory: Positive: Cough, No: Shortness of Breath Gastrointestinal: Positive: Nausea, Vomiting, Abdominal Pain, No: Diarrhea Genitourinary: No: Urgency, Frequency, Dysuria Musculoskeletal: Positive: Myalgias Physical Exam Narrative GENERAL: Patient is awake and alert and does not appear to be in any acute distress. SKIN: Warm and dry. HEAD: Atraumatic. Normocephalic. EYES: Pupils equal and round. ENT: No nasal bleeding or discharge. Mucous membranes pink but dry. NECK: Trachea midline. Neck is supple. CARDIOVASCULAR: Regular rate and rhythm. Heart sounds are normal. RESPIRATORY: No accessory muscle use. Lungs are clear with full air movement throughout. GASTROINTESTINAL: Abdomen soft, non-tender, nondistended. MUSCULOSKELETAL: No obvious deformities. No edema. NEUROLOGICAL: Awake and alert. No obvious cranial nerve deficits. Motor grossly within normal limits. Normal speech. PSYCHIATRIC: Appropriate mood and affect; insight and judgment normal. Data Data Last Documented VS Vital Signs Date Time Temp Pulse Resp B/P Pulse Ox O2 Delivery O2 Flow Rate FiO2 02/24/17 13:15 72 18 102/70 98 Room Air 02/24/17 12:06 98.0 Orders Electrocardiogram (02/24/17 ) Complete Blood Count With Diff (02/24/17 12:15) Comprehensive Metabolic Panel (02/24/17 12:15) Magnesium (Mg) (02/24/17 12:15) Ckmb (Isoenzyme) Profile (02/24/17 12:15) Troponin I (02/24/17 12:15) Urinalysis - C+S If Indicated (02/24/17 12:15) Ecg Monitoring (02/24/17 12:15) Iv Access Insert/Monitor (02/24/17 12:15) Oximetry (02/24/17 12:15) Ondansetron Inj (Zofran Inj) (02/24/17 12:15) Sodium Chloride 0.9% Flush (Ns Flush) (02/24/17 12:15) Sodium Chlor 0.9% 1000 Ml Inj (Ns 1000 M (02/24/17 12:15) CKMB (02/24/17 12:30) CKMB% (02/24/17 12:30) Sodium Chlor 0.9% 1000 Ml Inj (Ns 1000 M (02/24/17 14:00) Labs Laboratory Tests Test 02/24/17 02/24/17 12:30 13:50 White Blood Count 8.4 TH/MM3 Red Blood Count 3.97 MIL/MM3 Hemoglobin 12.4 GM/DL Hematocrit 36.7 % Mean Corpuscular Volume 92.6 FL Mean Corpuscular Hemoglobin 31.3 PG Mean Corpuscular Hemoglobin 33.8 % Concent Red Cell Distribution Width 12.7 % Platelet Count 359 TH/MM3 Mean Platelet Volume 6.6 FL Neutrophils (%) (Auto) 75.1 % Lymphocytes (%) (Auto) 15.6 % Monocytes (%) (Auto) 8.6 % Eosinophils (%) (Auto) 0.2 % Basophils (%) (Auto) 0.5 % Neutrophils # (Auto) 6.3 TH/MM3 Lymphocytes # (Auto) 1.3 TH/MM3 Monocytes # (Auto) 0.7 TH/MM3 Eosinophils # (Auto) 0.0 TH/MM3 Basophils # (Auto) 0.0 TH/MM3 CBC Comment DIFF FINAL Differential Comment Sodium Level 130 MEQ/L Potassium Level 3.3 MEQ/L Chloride Level 95 MEQ/L Carbon Dioxide Level 24.4 MEQ/L Anion Gap 11 MEQ/L Blood Urea Nitrogen 16 MG/DL Creatinine 0.84 MG/DL Estimat Glomerular Filtration 69 ML/MIN Rate Random Glucose 87 MG/DL Calcium Level 8.5 MG/DL Magnesium Level 2.1 MG/DL Total Bilirubin 0.6 MG/DL Aspartate Amino Transf 20 U/L (AST/SGOT) Alanine Aminotransferase 16 U/L (ALT/SGPT) Alkaline Phosphatase 53 U/L Total Creatine Kinase 107 U/L Creatine Kinase MB 0.7 NG/ML Troponin I LESS THAN 0.02 NG/ML Total Protein 6.3 GM/DL Albumin 3.5 GM/DL Urine Color LIGHT-YELLOW Urine Turbidity CLEAR Urine pH 7.5 Urine Specific [place] 1.006 Urine Protein TRACE mg/dL Urine Glucose (UA) NEG mg/dL Urine Ketones 40 mg/dL Urine Occult Blood NEG Urine Nitrite NEG Urine Bilirubin NEG Urine Urobilinogen LESS THAN 2.0 MG/DL Urine Leukocyte Esterase TRACE Urine RBC 1 /hpf Urine WBC 2 /hpf Urine Squamous Epithelial <1 /hpf Cells Urine Mucus FEW /lpf Microscopic Urinalysis Comment CULT NOT INDICATED MDM Medical Decision Making Medical Screen Exam Complete: Yes Emergency Medical Condition: Yes Medical Record Reviewed: Yes (she has a medical history of hypertension, epilepsy, tobacco abuse) Interpretation(s) EKG shows a sinus rhythm with a rate of 65. No ST segment elevation or depression. Differential Diagnosis My differential diagnosis of syncope includes but is not limited to cardiac arrhythmia, hypovolemia, anemia, neurological catastrophe, vasovagal response Narrative Course Patient presents with a syncopal event which follows a 10 day history of emesis. CBC & BMP Diagram 02/24/17 12:30 Cardiac enzymes are negative. UA is negative. Her urine specific gravity is 1.006. Diagnosis Primary Impression: Syncope Qualified Code: R55 - Syncope, unspecified syncope type Additional Impression: Vomiting Qualified Code: R11.2 - Non-intractable vomiting with nausea, unspecified vomiting type Patient Instructions: Acute Nausea and Vomiting (DC), General Instructions Med/Other Pt SpecificInfo: Prescription(s) given Scripts Ondansetron Odt (Zofran Odt)4 Mg Tab4 Mg SL Q6HR PRN (Nausea/Vomiting) #30 TAB Ref 0 Prov:Erma Marie MD 02/24/17 Promethazine (Phenergan)25 Mg Tab25 Mg PO Q6H PRN (Nausea/Vomiting) #12 TAB Ref 0 Prov:Erma Marie MD 02/24/17 Disposition: DISCHARGE HOME Condition: Stable Erma Marie MD Feb 24, 2017 12:21
[2017-02-24 12:22] VITALS: O2SAT 97
[2017-02-24] MEDS ORDERED: TRAZ50TA12 PO (12:25)
[2017-02-24 12:50] LABS: AUTOMATED NEUTROPHIL # 6.3 TH/MM3 (1.8-7.7); BASOPHIL % 0.5 % (0.0-2.0); EOSINOPHIL % 0.2 % (0.0-4.0); HEMATOCRIT 36.7 % (35.0-46.0); HEMO FLAGS DIFF FINAL; LYMPH % 15.6 % (9.0-44.0); LYMPHOCYTE # 1.3 TH/MM3 (1.0-4.8); MEAN CELL VOLUME 92.6 FL (80.0-100.0); MEAN CORPUSCULAR HEMOGLOBIN 31.3 PG (27.0-34.0); MEAN CORPUSCULAR HGB CONC 33.8 % (32.0-36.0); MONO % 8.6 % (0.0-8.0); NEUT % 75.1 % (16.0-70.0); PLATELET COUNT 359 TH/MM3 (150-450); RED BLOOD COUNT 3.97 MIL/MM3 (4.00-5.30); RED CELL DISTRIBUTION WIDTH 12.7 % (11.6-17.2); WHITE BLOOD COUNT 8.4 TH/MM3 (4.0-11.0)
[2017-02-24 13:12] LABS: ALKALINE PHOSPHATASE 53 U/L (45-117); ALT (GPT) 16 U/L (10-53); ANION GAP 11 MEQ/L (5-15); AST (GOT) 20 U/L (15-37); BICARBONATE 24.4 MEQ/L (21.0-32.0); BLOOD UREA NITROGEN 16 MG/DL (7-18); CHLORIDE 95 MEQ/L (98-107); CREATINE KINASE 107 U/L (26-192); GLOMERULAR FILTRATION RATE 69 ML/MIN (>89); MAGNESIUM 2.1 MG/DL (1.5-2.5); SODIUM (NA) 130 MEQ/L (136-145); TOTAL BILIRUBIN ADULT 0.6 MG/DL (0.2-1.0)
[2017-02-24 13:13] LABS: POTASSIUM 3.3 MEQ/L (3.5-5.1)
[2017-02-24 13:15] VITALS: BP 102/70; PULSE 72; RESP 18; O2SAT 98
[2017-02-24 13:25] LABS: CKMB 0.7 NG/ML (0.5-3.6)
[2017-02-24 14:16] LABS: BLOOD, URINE NEG (NEG); COMMENT (UR) CULT NOT INDICATED; CULTURE IF INDICATED CULT NOT INDICATED; GLUCOSE,URINE NEG (NEG); KETONE, URINE 40 mg/dL (NEG); MUCUS URINE FEW /lpf (OCC); NITRITE,URINE NEG (NEG); PH, URINE 7.5 (5.0-8.5); SQUAMOUS EPITHELIAL CELL URINE <1 /hpf (0-5); URINE COLOR LIGHT-YELLOW (YELLW/STRAW)
[2017-02-24] MEDS ORDERED: ZOFR4TAB3 SL (14:29)
[2017-02-24] MEDS ORDERED: PROM25TA5 PO (14:29)
[2017-02-24 15:20] VITALS: BP 139/66
--- NOTE | 2017-02-25 13:15 | EKG ---
Date Performed: 02/24/2017 Time Performed: 12:15:00 PTAGE: 61 years EKG: Sinus rhythm POSSIBLE LEFT ATRIAL ENLARGEMENT POSSIBLE RIGHT VENTRICULAR CONDUCTION DELAY MINIMAL ST DEPRESSION P ROLONGED QT INTERVAL ABNORMAL ECG NO PREVIOUS TRACING DOCTOR: Cristopher Knight Interpretating Date/Time 02/25/2017 13:13:20
== END 2017-02-24 17:31 | disposition home or self-care (01) ==
LOC: NEPA 11:55
DX: R55 Syncope and collapse (principal); R11.2 Nausea with vomiting, unspecified; R51 Headache
CPT/HCPCS: 80053; 81001; 82550; 82552; 83735; 84484; 85025; 93005; 96361; 96374; 99284; J2405; J7030

== ENCOUNTER 2017-06-12 08:34 | Inpatient (IN) | payer OTHER, MEDICARE ==
[~2017-06-12] VITALS: Ht 157.5 cm; Wt 54.5 kg
[~2017-06-12 08:34] MED LIST changes: +PROM25TA5 PO; +TRAZ50TA12 PO; +ZOFR4TAB3 SL
[2017-06-12 08:36] VITALS: BP 134/72; PULSE 62; RESP 20; TEMP 97.6; O2SAT 95
--- NOTE | 2017-06-12 10:26 | RADRPT ---
EXAM DATE/TIME: 06/12/2017 09:48 [facility] COMPARISON: No previous studies available for comparison. INDICATIONS : Left ankle pain. Patient tripped over dog last night. Bimalleolar pain. MEDICAL HISTORY : None. SURGICAL HISTORY : None. ENCOUNTER: Initial ACUITY: 1 day PAIN SCORE: 10/10 LOCATION: Left ankle. FINDINGS: Three view exam was performed of the left ankle. Bimalleolar fracture dislocation is noted of the ank le. An oblique mildly displaced fracture is identified through the distal fibula. There is an avulsio n fracture of the medial malleolus. The talus is displaced laterally in relation to the articulating surface of the tibia. CONCLUSION: Bimalleolar fracture dislocation of left ankle with disruption of the ankle mortise. Nicholas Zuniga MD on June 12, 2017 at 10:23 Board Certified Radiologist. This report was verified electronically.
[2017-06-12] MEDS ORDERED: HYDROmorphone HCL PF 1 MG/ML VIAL IV PUSH ONE (10:45)
[2017-06-12] MEDS ORDERED: SODIUM CHLOR 0.9% 1000 ML INJ 1,000 ML IV ONE (10:45)
[2017-06-12 10:59] VITALS: BP 102/57; PULSE 63; RESP 16; O2SAT 100
[2017-06-12 11:09] LABS: AUTOMATED NEUTROPHIL # 7.3 TH/MM3 (1.8-7.7); BASOPHIL % 0.3 % (0.0-2.0); EOSINOPHIL # 0.1 TH/MM3 (0-0.4); EOSINOPHIL % 1.2 % (0.0-4.0); HEMATOCRIT 38.6 % (35.0-46.0); HEMO FLAGS DIFF FINAL; MEAN CELL VOLUME 90.9 FL (80.0-100.0); MEAN CORPUSCULAR HEMOGLOBIN 31.2 PG (27.0-34.0); MEAN CORPUSCULAR HGB CONC 34.3 % (32.0-36.0); MONO % 8.3 % (0.0-8.0); NEUT % 79.2 % (16.0-70.0); PLATELET COUNT 310 TH/MM3 (150-450); RED BLOOD COUNT 4.25 MIL/MM3 (4.00-5.30); RED CELL DISTRIBUTION WIDTH 14.1 % (11.6-17.2); WHITE BLOOD COUNT 9.2 TH/MM3 (4.0-11.0)
--- NOTE | 2017-06-12 11:12 | PD ---
HPI Chief Complaint: Injury Time Seen by Provider: 09:33 Travel History International Travel<30 days: No Contact w/Intl Traveler<30days: No Traveled to known affect area: No History of Present Illness HPI Patient is a 61 year old female who comes in complaining of ankle pain and swelling. She says when she stepped out of the shower last night, she tripped over her dog and hurt her ankle. She denies any other injuries. She took a hydrocodone at home, which seems to be helping her pain. She denies any leg or knee pain. PFSH Past Medical History Hx Anticoagulant Therapy: No Arthritis: Yes Bipolar Disorder: Yes Anxiety: Yes Cancer: No Cardiovascular Problems: Yes (HTN) Chemotherapy: No Cerebrovascular Accident: Yes (2011) Diabetes: No Diminished Hearing: No Endocrine: No Genitourinary: No Hepatitis: No Hiatal Hernia: No Hypertension: Yes Immune Disorder: Yes (LUPUS) Medical other: No Musculoskeletal: Yes (arthritis) Neurologic: Yes (stroke and seizure 2011) Psychiatric: Yes (bipolar, anxiety) Reproductive: No Respiratory: No Seizures: Yes Thyroid Disease: No Tetanus Vaccination: Unknown Influenza Vaccination: No ?: Not Past Surgical History Abdominal Surgery: No AICD: No Body Medical Devices: BREASTS Cardiac Surgery: No Ear Surgery: No Endocrine Surgery: No Eye Surgery: No Genitourinary Surgery: No Gynecologic Surgery: Yes (hysterectomy 1999) Hysterectomy: Yes (2004) Joint Replacement: Yes (INDER KNEE REPLACEMENT) Oral Surgery: Yes (tonsillectomy) Pacemaker: No Thoracic Surgery: Yes (BREAST AUGMENTATION 1979, 2004) Tonsillectomy: Yes Other Surgery: Yes Social History Alcohol Use: Yes (OCC) Tobacco Use: Yes (3 CIGS/DAY) Substance Use: No Allergies-Medications (Allergen,Severity, Reaction): Coded Allergies: Toradol (Verified Allergy, Unknown, Rash, 02/24/17) Reported Meds & Prescriptions Reported Meds & Active Scripts Active Reported Trazodone (Trazodone HCl) 50 Mg Tab 50 Mg PO HS PRN Prozac (Fluoxetine HCl) 40 Mg Cap 40 Mg PO DAILY Lisinopril 2.5 Mg Tab 2.5 Mg PO HS Zolpidem (Zolpidem Tartrate) 5 Mg Tab 5 Mg PO HS PRN Ziprasidone 40 Mg Cap 40 Mg PO BID Hydrocodone-Acetaminophen 5-325 mg Tab 2 Tab PO Q4H PRN Aspirin 325 Mg Tab 325 Mg PO DAILY Gabapentin 600 Mg Tab 600 Mg PO TID Review of Systems Except as stated in HPI: all other systems reviewed are Neg General / Constitutional: No: Fever, Chills HENT: No: Headaches, Lightheadedness Cardiovascular: No: Chest Pain or Discomfort Respiratory: No: Shortness of Breath Gastrointestinal: No: Nausea, Vomiting Musculoskeletal: Positive: Edema, Pain Skin: No Rash Neurologic: No: Sensory Disturbance Physical Exam Narrative GENERAL: Awake and alert, in no acute distress. SKIN: Focused skin assessment warm/dry. HEAD: Atraumatic. Normocephalic. EYES: Pupils equal and round. No scleral icterus. ENT: No nasal bleeding or discharge. Mucous membranes pink and moist. NECK: Trachea midline. No JVD. CARDIOVASCULAR: Regular rate and rhythm. No murmur appreciated. RESPIRATORY: No accessory muscle use. Clear to auscultation. Breath sounds equal bilaterally. MUSCULOSKELETAL: Deformity of the left ankle. Tender to palpation of the medial and lateral malleolus. Pedal pulses intact. NEUROLOGICAL: Awake and alert. No obvious cranial nerve deficits. Motor grossly within normal limits. Normal speech. PSYCHIATRIC: Appropriate mood and affect; insight and judgment normal. Data Data Last Documented VS Vital Signs Date Time Temp Pulse Resp B/P Pulse Ox O2 Delivery O2 Flow Rate FiO2 06/12/17 11:42 15 06/12/17 10:59 63 102/57 100 Room Air 06/12/17 08:36 97.6 Orders Ankle, Complete ([id number]) (06/12/17 ) Iv Access Insert/Monitor (06/12/17 10:31) Complete Blood Count With Diff (06/12/17 10:36) Basic Metabolic Panel (Bmp) (06/12/17 10:36) Act Partial Throm Time (Ptt) (06/12/17 10:36) Prothrombin Time / Inr (Pt) (06/12/17 10:36) Hydromorphone Pf Inj (Dilaudid Pf Inj) (06/12/17 10:45) Sodium Chlor 0.9% 1000 Ml Inj (Ns 1000 M (06/12/17 10:45) Fiberglass Short Leg Splint Ad (06/12/17 ) Fiberglass Sugartong Sp Ad Sl (06/12/17 ) Admit Order (Ed Use Only) (06/12/17 ) Admit To Inpatient (06/12/17 ) Code Status (06/12/17 11:44) Vital Signs (Adult) Q4H (06/12/17 11:44) Activity Oob With Assistance (06/12/17 11:44) Diet Npo (06/12/17 Lunch) Sodium Chlor 0.9% 1000 Ml Inj (Ns 1000 M (06/12/17 11:44) Sodium Chloride 0.9% Flush (Ns Flush) (06/12/17 11:45) Sodium Chloride 0.9% Flush (Ns Flush) (06/12/17 21:00) Ondansetron Inj (Zofran Inj) (06/12/17 11:45) Basic Metabolic Panel (Bmp) (06/13/17 06:00) Complete Blood Count With Diff (06/13/17 06:00) Scd Bilateral/Knee High LENNY.BID (06/12/17 11:44) Hydromorphone Pf Inj (Dilaudid Pf Inj) (06/12/17 11:45) Hydromorphone Pf Inj (Dilaudid Pf Inj) (06/12/17 11:45) Naloxone Inj (Narcan Inj) (06/12/17 11:45) Docusate Sodium-Senna (Christina-Colace) (06/12/17 21:00) Magnesium Hydroxide Liq (Milk Of Magnesi (06/12/17 11:45) Sennosides (Senokot) (06/12/17 11:45) Bisacodyl Supp (Dulcolax Supp) (06/12/17 11:45) Lactulose Liq (Lactulose Liq) (06/12/17 11:45) Inpatient Certification (06/12/17 ) Gabapentin (Neurontin) (06/12/17 13:00) Trazodone (Desyrel) (06/12/17 12:00) Ziprasidone (Geodon) (06/12/17 21:00) Zolpidem (Ambien) (06/12/17 12:00) Fluoxetine (Prozac) (06/13/17 09:00) Lisinopril (Prinivil) (06/12/17 21:00) Labs Laboratory Tests Test 06/12/17 10:50 White Blood Count 9.2 TH/MM3 Red Blood Count 4.25 MIL/MM3 Hemoglobin 13.2 GM/DL Hematocrit 38.6 % Mean Corpuscular Volume 90.9 FL Mean Corpuscular Hemoglobin 31.2 PG Mean Corpuscular Hemoglobin 34.3 % Concent Red Cell Distribution Width 14.1 % Platelet Count 310 TH/MM3 Mean Platelet Volume 6.7 FL Neutrophils (%) (Auto) 79.2 % Lymphocytes (%) (Auto) 11.0 % Monocytes (%) (Auto) 8.3 % Eosinophils (%) (Auto) 1.2 % Basophils (%) (Auto) 0.3 % Neutrophils # (Auto) 7.3 TH/MM3 Lymphocytes # (Auto) 1.0 TH/MM3 Monocytes # (Auto) 0.8 TH/MM3 Eosinophils # (Auto) 0.1 TH/MM3 Basophils # (Auto) 0.0 TH/MM3 CBC Comment DIFF FINAL Differential Comment Prothrombin Time 10.7 SEC Prothromb Time International 1.0 RATIO Ratio Activated Partial 23.8 SEC Thromboplast Time Sodium Level 133 MEQ/L Potassium Level 5.4 MEQ/L Chloride Level 100 MEQ/L Carbon Dioxide Level 27.8 MEQ/L Anion Gap 5 MEQ/L Blood Urea Nitrogen 11 MG/DL Creatinine 0.91 MG/DL Estimat Glomerular Filtration 63 ML/MIN Rate Random Glucose 104 MG/DL Calcium Level 9.0 MG/DL [facility] Medical Decision Making Medical Screen Exam Complete: Yes Emergency Medical Condition: Yes Medical Record Reviewed: Yes Differential Diagnosis Ankle fracture versus dislocation versus sprain Narrative Course Patient is a 61-year-old female comes in complaining of ankle pain after she tripped and fell yesterday. Exam shows tenderness to the medial and lateral malleolus. X-ray performed shows bimalleolar fracture with disruption of the ankle mortise. Orthopedics was consulted, will take the patient to the OR. Patient given 1 mg of Dilaudid and fracture reduced and placed in a splint. Patient admitted for further management. Diagnosis Primary Impression: Displaced bimalleolar fracture of left ankle Qualified Code: S82.842A - Displaced bimalleolar fracture of left ankle, closed, initial encounter Admitting Information Admitting Physician Requests: Admit Scripts Crutch/Aluminum/Adult 1 Mis Mis #1 Ea .route As Directed Prov:Sarah Moran 06/13/17 Walker with Front Wheels 1 Mis Mis #1 EA .ROUTE DIRECTED Ref 0 Prov:Sarah Moran 06/13/17 Oxycodone-Acetaminophen 5-325 mg Tab2 Tab PO Q4H PRN (PAIN SCALE 5 TO 10) #40 TAB Prov:Sarah Moran 06/13/17 Rivaroxaban (Xarelto)10 Mg Tab10 Mg PO Q24H #20 TAB Prov:Sarah Moran 06/13/17 Michelle Muse MD Jun 12, 2017 11:12
[2017-06-12 11:17] LABS: APTT (PATIENT) 23.8 SEC (24.3-30.1); PROTHROMBIN TIME - PATIENT 10.7 SEC (9.8-11.6)
[2017-06-12 11:29] LABS: BICARBONATE 27.8 MEQ/L (21.0-32.0); POTASSIUM 5.4 MEQ/L (3.5-5.1)
[2017-06-12] MEDS ORDERED: SODIUM CHLOR 0.9% 1000 ML INJ 1,000 ML IV SCH (11:44)
[2017-06-12] MEDS ORDERED: SODIUM CHLORIDE 0.9% FLUSH 10 ML FLUSH IV FLUSH PRN ×2 (11:45→15:30)
[2017-06-12] MEDS ORDERED: HYDROmorphone HCL PF 1 MG/ML VIAL IV PRN ×2 (11:45)
[2017-06-12] MEDS ORDERED: BISACODYL 10 MG SUPP RECTAL PRN ×2 (11:45→15:30)
[2017-06-12] MEDS ORDERED: NALOXONE HCL 0.4 MG/ML AMP IV PRN ×2 (11:45→15:30)
[2017-06-12] MEDS ORDERED: MAGNESIUM HYDROXIDE SUSP 30 ML CUP PO PRN ×2 (11:45→15:30)
[2017-06-12] MEDS ORDERED: LACTULOSE SYRUP 20 GM/30 ML CUP PO PRN ×2 (11:45→15:30)
[2017-06-12] MEDS ORDERED: ONDANSETRON HCL 4 MG/2 ML VIAL IVP PRN ×2 (11:45→15:30)
[2017-06-12] MEDS ORDERED: SENNOSIDES 8.6 MG TAB PO PRN ×2 (11:45→15:30)
--- NOTE | 2017-06-12 11:59 | PD.CONS ---
cc: Gennaro Canas MD left bimalleolar ankle fracture (Sarah Moran) HPI Service Orthopedic Surgeons Consult Requested By ER staff Reason for Consult Left Closed Displaced Bimalleolar Ankle Fracture Primary Care Physician Juan Bonner MD Admission Diagnosis Ankle fracture Diagnoses: (1) Displaced bimalleolar fracture of left ankle Diagnosis: Principal (2) Fall Chief Complaint: left closed displaced bimalleolar ankle fracture (Sarah Moran) History of Present Illness 61 year old female admits to a trip and fall incident late last night. She states she got up at 2am to use the restroom and tripped over her large dog. She had immediate pain and swelling in her left ankle. She had continued pain this AM and presented to [facility]. After evaluation and imaging it was revealed she sustained a closed displaced bimalleolar fracture with disruption of ankle mortise of her left ankle. ER physician admits to attempted reduction of the ankle and states it felt successful. No additional imaging was requested. She admits she ate a bite of a granola bar at 7am. Denies being anticoagulated. Admits to previous orthopedic surgeries including bilateral total knee arthroplasties by Dr. Jorge. She previously ambulated unassisted prior to this injury. Admits to history of controlled lupus, stroke (2011) and hypertension. No other orthopedic injuries at this time. (Sarah Moran) History of Present Illness She denies previous history of ankle problems. (Gennaro Canas MD) Review of Systems well outlined in medical record (Sarah Moran) Reviewed and patient denies any additional constitutional symptoms at the present time. (Gennaro Canas MD) Past Family Social History Past Medical History Hx Anticoagulant Therapy: No Arthritis: Yes Bipolar Disorder: Yes Anxiety: Yes Cancer: No Cardiovascular Problems: Yes (HTN) Chemotherapy: No Cerebrovascular Accident: Yes (2011) Diabetes: No Diminished Hearing: No Endocrine: No Genitourinary: No Hepatitis: No Hiatal Hernia: No Hypertension: Yes Immune Disorder: Yes (LUPUS) Medical other: No Musculoskeletal: Yes (arthritis) Neurologic: Yes (stroke and seizure 2011) Psychiatric: Yes (bipolar, anxiety) Reproductive: No Respiratory: No Seizures: Yes Thyroid Disease: No Tetanus Vaccination: Unknown Influenza Vaccination: No ?: Not Past Surgical History Past Surgical History Abdominal Surgery: No AICD: No Body Medical Devices: BREASTS Cardiac Surgery: No Ear Surgery: No Endocrine Surgery: No Eye Surgery: No Genitourinary Surgery: No Gynecologic Surgery: Yes (hysterectomy 1999) Hysterectomy: Yes (2004) Joint Replacement: Yes (INDER KNEE REPLACEMENT) Oral Surgery: Yes (tonsillectomy) Pacemaker: No Thoracic Surgery: Yes (BREAST AUGMENTATION 1979, 2004) Tonsillectomy: Yes Other Surgery: Yes (Sarah Moran) Allergies: Coded Allergies: Toradol (Verified Allergy, Unknown, Rash, 02/24/17) Active Ordered Medications Reported Meds & Active Scripts Active Reported Trazodone (Trazodone HCl) 50 Mg Tab 50 Mg PO HS PRN Prozac (Fluoxetine HCl) 40 Mg Cap 40 Mg PO DAILY Lisinopril 2.5 Mg Tab 2.5 Mg PO HS Zolpidem (Zolpidem Tartrate) 5 Mg Tab 5 Mg PO HS PRN Ziprasidone 40 Mg Cap 40 Mg PO BID Hydrocodone-Acetaminophen 5-325 mg Tab 2 Tab PO Q4H PRN Aspirin 325 Mg Tab 325 Mg PO DAILY Gabapentin 600 Mg Tab 600 Mg PO TID Social History admits to alcohol and tobacco use (Sarah Moran) Physical Exam Vital Signs Vital Signs Date Time Temp Pulse Resp B/P Pulse Ox O2 Delivery O2 Flow Rate FiO2 06/12/17 11:42 15 06/12/17 10:59 63 16 102/57 100 Room Air 06/12/17 08:36 97.6 62 20 134/72 95 Room Air Physical Exam LLE: in splint and dressing. Splint not removed for examination. She has full feeling in distal digits. She is able to move distal digits. Good cap refill. NVI. Freely able to move knee. No other orthopedic injuries noted. Laboratory Laboratory Tests Test 06/12/17 10:50 White Blood Count 9.2 Red Blood Count 4.25 Hemoglobin 13.2 Hematocrit 38.6 Mean Corpuscular Volume 90.9 Mean Corpuscular Hemoglobin 31.2 Mean Corpuscular Hemoglobin 34.3 Concent Red Cell Distribution Width 14.1 Platelet Count 310 Mean Platelet Volume 6.7 Neutrophils (%) (Auto) 79.2 Lymphocytes (%) (Auto) 11.0 Monocytes (%) (Auto) 8.3 Eosinophils (%) (Auto) 1.2 Basophils (%) (Auto) 0.3 Neutrophils # (Auto) 7.3 Lymphocytes # (Auto) 1.0 Monocytes # (Auto) 0.8 Eosinophils # (Auto) 0.1 Basophils # (Auto) 0.0 CBC Comment DIFF FINAL Differential Comment Prothrombin Time 10.7 Prothromb Time International 1.0 Ratio Activated Partial 23.8 Thromboplast Time Sodium Level 133 Potassium Level 5.4 Chloride Level 100 Carbon Dioxide Level 27.8 Anion Gap 5 Blood Urea Nitrogen 11 Creatinine 0.91 Estimat Glomerular Filtration 63 Rate Random Glucose 104 Calcium Level 9.0 (Sarah Moran) Physical Exam Examination in the operating room revealed minimal swelling of the ankle. She had a well-healed surgical incision over the anterior aspect of both knees. There was a small area of ecchymosis anteriorly. The ankle was unstable. ( Gennaro Canas MD) Result Diagram: 06/12/17 1050 06/12/17 1050 Imaging Last Impressions Ankle X-Ray 06/12/17 0000 Signed Impressions: Service Date/Time: Monday, June 12, 2017 09:48 - CONCLUSION: Bimalleolar fracture dislocation of left ankle with disruption of the ankle mortise. Nicholas Zuniga MD Course well outlined in medical record (Sarah Moran) Assessment & Plan Problem List: (1) Displaced bimalleolar fracture of left ankle (2) Fall Assessment and Plan The findings were discussed with the patient in detail. Recommendations are given for surgical management, open reduction internal fixation of left ankle, to allow for mobilization and pain control. The nature of the planned surgical procedure, the risks, the benefits as well as postoperative expectations have been discussed with the patient in detail. In addition, alternatives of the treatment and risks were discussed. The patient acknowledges full understanding and consents to it. Written by Sarah Moran (Ashley), acting as scribe for Dr. Gennaro Canas on 06/12/17 at 11:56. (Sarah Moran) Assessment and Plan The postoperative expectations were discussed including a period of immobilization and weight restriction. The possibility of requiring hardware removal of the future was discussed. In addition the possibility of long-term discomfort and restricted mobility were discussed and she acknowledges full understanding. The exam, history, and the medical decision-making described in the above note were completed with the assistance of the mid-level provider. I reviewed and agree with the findings presented. I attest that I had a [id number] encounter with the patient on the same day, and personally performed and documented my assessment and findings in the medical record. (Gennaro Canas MD) Sarha Moran Jun 12, 2017 11:58 Gennaro Canas MD Jun 12, 2017 15:10
[2017-06-12] MEDS ORDERED: ZOLPIDEM TARTRATE 5 MG TAB PO PRN (12:00)
[2017-06-12] MEDS ORDERED: ONDANSETRON HCL 4 MG/2 ML VIAL IV PUSH ONE (12:00)
[2017-06-12] MEDS ORDERED: PROPOFOL 200 MG/20 ML AMP IV ONE (12:00)
[2017-06-12] MEDS ORDERED: traZODone HCL 50 MG TAB PO PRN (12:00)
[2017-06-12] MEDS ORDERED: LACTATED RINGER'S 1000 ML INJ 1,000 ML IV ONE (12:00)
[2017-06-12] MEDS ORDERED: ePHEDrine/NS 25 MG/5 ML SYR IV ONE (12:00)
[2017-06-12 12:04] VITALS: BP 100/62
[2017-06-12] MEDS ORDERED: VANCOMYCIN HCL 1000 MG VIAL ONE (12:16)
[2017-06-12] MEDS ORDERED: ceFAZolin INJ 1,000 MG VIAL ONE (12:16)
[2017-06-12] MEDS ORDERED: GENTAMICIN SULFATE 80 MG/2 ML VIAL ONE (12:16)
[2017-06-12] MEDS ORDERED: MIDAZOLAM HCL 2 MG/2 ML VIAL ONE (12:36)
[2017-06-12] MEDS ORDERED: ACETAMINOPHEN 1000 MG/100 ML VIAL IV ONE (12:36)
[2017-06-12] MEDS ORDERED: DEXAMETHASONE SOD PHOS 4 MG/ML VIAL ONE (12:36)
[2017-06-12] MEDS ORDERED: FAMOTIDINE 20 MG/2 ML VIAL ONE (12:37)
[2017-06-12] MEDS: GABAPENTIN 300 MG CAP PO SCH ×2 (13:00→20:31)
--- NOTE | 2017-06-12 14:12 | HHI.HP ---
[facility] Service [facility] Primary Care Physician Juan Bonner MD Admission Diagnosis Ankle fracture Diagnoses: (1) Displaced bimalleolar fracture of left ankle Diagnosis: Principal (2) Fall Travel History International Travel<30 Days: No Contact w/Intl Traveler <30 Da: No Traveled to Known Affected Are: No History of Present Illness Mrs. Lucio is a 61-year-old female. She is here secondary to a trip and fall last night in which she sustained an injury of her left ankle. She has a bilateral malleolar fracture in plan for surgical repair today is present. Pain is under control when seen. She is about to enter the operating room. Baseline medical conditions are bipolar disorder hypertension, insomnia, and depression. She is active at baseline and should do well with PT postop. No other complaints. Pain was her primary complaint without any numbness of the foot. Review of Systems Constitutional: DENIES: Fatigue, Fever, Chills Eyes: DENIES: Blurred vision, Diplopia, Eye pain Respiratory: DENIES: Cough, Wheezing, Shortness of breath Cardiovascular: DENIES: Chest pain, Palpitations, Syncope Gastrointestinal: DENIES: Abdominal pain, Black stools, Bloody stools Musculoskeletal: COMPLAINS OF: Joint pain, DENIES: Muscle aches, Stiffness Integumentary: DENIES: Abnormal pigmentation, Pruritus Hematologic/lymphatic: DENIES: Bruising Immunologic/allergic: DENIES: Eczema Neurologic: DENIES: Abnormal gait Psychiatric: DENIES: Anxiety, Confusion Past Family Social History Past Medical History Hx Anticoagulant Therapy: No Arthritis: Yes Bipolar disorder Chronic neck pain Chronic back pain Osteoarthritis of bilateral knees Past Surgical History Tonsillectomy Left knee arthroplasty in 2016 Laparotomy for abdominal adhesions Abdominal hysterectomy Bilateral mammoplasty Reported Medications Reported Meds & Active Scripts Active Reported Trazodone (Trazodone HCl) 50 Mg Tab 50 Mg PO HS PRN Prozac (Fluoxetine HCl) 40 Mg Cap 40 Mg PO DAILY Lisinopril 2.5 Mg Tab 2.5 Mg PO HS Zolpidem (Zolpidem Tartrate) 5 Mg Tab 5 Mg PO HS PRN Ziprasidone 40 Mg Cap 40 Mg PO BID Hydrocodone-Acetaminophen 5-325 mg Tab 2 Tab PO Q4H PRN Aspirin 325 Mg Tab 325 Mg PO DAILY Gabapentin 600 Mg Tab 600 Mg PO TID Allergies: Coded Allergies: Toradol (Verified Allergy, Unknown, Rash, 02/24/17) Family History Diabetes Skin cancer Breast cancer multiple sclerosis Social History Patient smokes approximately 3 cigarettes per day now Alcohol use No drug abuse Physical Exam Vital Signs Vital Signs Date Time Temp Pulse Resp B/P Pulse Ox O2 Delivery O2 Flow Rate FiO2 06/12/17 12:04 75 16 100/62 99 06/12/17 11:42 15 06/12/17 10:59 63 16 102/57 100 Room Air 06/12/17 08:36 97.6 62 20 134/72 95 Room Air Physical Exam GENERAL: NAD, A&Ox3 HEAD: Normocephalic. NECK: Supple, trachea midline. No lymphadenopathy. EYES: No scleral icterus. No injection or drainage. CARDIOVASCULAR: Regular rate and rhythm without murmurs, gallops, or rubs. RESPIRATORY: Breath sounds equal bilaterally. No accessory muscle use. GASTROINTESTINAL: Abdomen soft, non-tender, nondistended. MUSCULOSKELETAL: No cyanosis, or edema. Left ankle bandaged. SKIN: Warm and dry. NEURO: No focal neurological deficitis. Laboratory Laboratory Tests Test 06/12/17 10:50 White Blood Count 9.2 Red Blood Count 4.25 Hemoglobin 13.2 Hematocrit 38.6 Mean Corpuscular Volume 90.9 Mean Corpuscular Hemoglobin 31.2 Mean Corpuscular Hemoglobin 34.3 Concent Red Cell Distribution Width 14.1 Platelet Count 310 Mean Platelet Volume 6.7 Neutrophils (%) (Auto) 79.2 Lymphocytes (%) (Auto) 11.0 Monocytes (%) (Auto) 8.3 Eosinophils (%) (Auto) 1.2 Basophils (%) (Auto) 0.3 Neutrophils # (Auto) 7.3 Lymphocytes # (Auto) 1.0 Monocytes # (Auto) 0.8 Eosinophils # (Auto) 0.1 Basophils # (Auto) 0.0 CBC Comment DIFF FINAL Differential Comment Prothrombin Time 10.7 Prothromb Time International 1.0 Ratio Activated Partial 23.8 Thromboplast Time Sodium Level 133 Potassium Level 5.4 Chloride Level 100 Carbon Dioxide Level 27.8 Anion Gap 5 Blood Urea Nitrogen 11 Creatinine 0.91 Estimat Glomerular Filtration 63 Rate Random Glucose 104 Calcium Level 9.0 Result Diagram: 06/12/17 1050 06/12/17 1050 Assessment and Plan Problem List: (1) Displaced bimalleolar fracture of left ankle ICD Code: S82.842A Status: Acute (2) Fall ICD Code: W19.XXXA Status: Acute Assessment and Plan Assessment and plan 61-year-old female admitted secondary to bimalleolar fracture of left ankle Bimalleolar fracture left ankle When necessary pain treatments Orthopedic consult Surgery repair pending PT after surgery Bipolar disorder No apparent exacerbation Continue baseline treatments Resume treatments after surgery Chronic neck pain Chronic back pain Bilateral knee osteoarthritis Patient appears functional prior to current fracture We'll treat with pain medicines She is likely to do well despite her chronic pain DVT prophylaxis Lovenox will start postop Discharge planning Patient will need to demonstrate functionality prior to discharge Physician Certification 2 Midnight Certification Type: Admission for Inpatient Services Order for Inpatient Services The services are ordered in accordance with Medicare regulations or non- Medicare payer requirements, as applicable. In the case of services not specified as inpatient-only, they are appropriately provided as inpatient services in accordance with the 2-midnight benchmark. Estimated LOS (days): 2 days is the estimated time the patient will need to remain in the hospital, assuming treatment plan goals are met and no additional complications. Post-Hospital Plan: Jan Beard MD Jun 12, 2017 14:12
--- NOTE | 2017-06-12 15:19 | PD.OP ---
cc: Gennaro Canas MD Operative Report Preoperative Diagnosis: (1) Displaced bimalleolar fracture of left ankle Postoperative Diagnosis: (1) Displaced bimalleolar fracture of left ankle Procedure: Open reduction and fixation left ankle bimalleolar fracture Implants: Synthes Anesthesia: Gen. Surgeon: Gennaro Canas Equipment Manager(s): Sarah Moran PA-C (Ashley) The surgical procedure was assisted by my physician's speech language assistant. Her presence was necessary throughout the case for manipulation and positioning of the surgical extremity. My PA was assisting me throughout the duration of this procedure. The skill set of the physician speech language assistant was medically necessary to complete this procedure. During the surgical case the polysomnograph tech was working at the back table and the physician speech language assistant was directly assisting me. Operation and Findings: Indications: This 61-year-old female fell at home injuring her left ankle. She had immediate pain and difficulty ambulating. She presented to [facility]. X-rays revealed a bimalleolar fracture of the left ankle with subluxation. Recommendations are for internal fixation. Procedure and findings: The patient was taken to the operative suite and after undergoing an adequate level of general anesthesia was kept supine on the operative table. Preoperative antibiotics consisted of Ancef 1 g IV. The left lower extremity was prepped and draped in usual sterile fashion with alcohol and Hibiclens. The leg was exsanguinated and the tourniquet inflated. Attention was first focused over the lateral aspect of the ankle where a longitudinal incision was made. This was carried down through skin and subcutaneous tense tissue with a knife. Both sharp and blunt dissection carried out to the lateral cortex of the fibula. The fracture site was identified. There was comminution. Soft tissue was removed from the fracture site and the fracture hematoma irrigated. The wound was reduced and held with a reduction clamp. The bone was soft secondary to osteopenia. A lag screw was placed from proximal anterior to distal posterior. A Synthes locking fibular plate was then applied. The position was checked in both the AP and lateral planes with the C-arm. A cortical screw was placed proximal to the fracture site in the oblong hole to assist with adjustment. Once the position was distal screws were placed utilizing locking screws and fluoroscopic guidance. A distal proximal cortical screws were then placed after drilling. The position was checked in both the AP and lateral planes with the C-arm. Attention was then focused over the medial aspect of the ankle where a curvilinear incision was made over the palpable fracture site. This was carried down through skin and subcutaneous tense tissue with a knife. The saphenous vein and nerve were protected. Fracture site was freed of all soft tissue. There was marked comminution of a very small distal fragment. This made reduction somewhat cumbersome. Once reduction was accomplished to K wires were placed from distal to proximal. The position was checked in both AP and lateral planes with the C-arm. Distal fixation was accomplished with a transosseous suture. Drill holes were made and a #2 FiberWire passed. A 40 cannulated screw was then seated over one of the wires. The other wire was to be used for additional fixation. The suture was placed around the washer of the screw and the wire in a [id number] configuration. It was then tied. The tendon was bent and cut and advanced further for prominence reduction. The position of the fracture reduction and placement of internal fixation were then checked in both the AP and lateral planes with the C-arm. The wounds were then thoroughly irrigated. There were closed in layers utilizing 0 Vicryl suture on the muscular fascia laterally, 2-0 Vicryl suture and the subcutaneous tense tissue and arley on the skin over the lateral incision and 3-0 nylon medially. Sterile dressings were applied, the patient was placed into a splint , awakened, transferred to the hospital bed and taken to the recovery room in stable condition. Estimated blood loss: Minimal Complications: None Tourniquet time: 90 minutes Gennaro Canas MD Jun 12, 2017 15:19
[2017-06-12] MEDS ORDERED: MISCELLANEOUS NURSING INFORMATION XX PRN (15:30)
[2017-06-12] MEDS ORDERED: oxyCODONE/ACETAMINOPHEN 5 MG/325 MG TAB PO PRN (15:30)
[2017-06-12] MEDS ORDERED: MISCELLANEOUS PHARMACY INFORMATION XX ONE (15:30)
[2017-06-12] MEDS ORDERED: MORPHINE SULFATE 8 MG/ML INJ IV PUSH PRN (15:30)
[2017-06-12] MEDS ORDERED: TEMAZEPAM 15 MG CAP PO PRN (15:30)
[2017-06-12] MEDS ORDERED: Post-op Orders (for Pharmacy) MISC XX ONE (15:30)
[2017-06-12] MEDS ORDERED: ACETAMINOPHEN 325 MG TAB PO PRN (15:30)
[2017-06-12] MEDS ORDERED: POVIDONE IODINE 10% SOLN 118 ML BOTTLE TOPICAL PRN (15:30)
--- NOTE | 2017-06-12 15:31 | RADRPT ---
EXAM DATE/TIME: 06/12/2017 14:34 [facility] COMPARISON: ANKLE LEFT COMPLETE ([id number]), June 12, 2017, 9:48. INDICATIONS : Open reduction internal fixation of left ankle fracture MEDICAL HISTORY : None. SURGICAL HISTORY : None. ENCOUNTER: Initial ACUITY: 1 day PAIN SCORE: Non-responsive. LOCATION: Left ankle FINDINGS: Side plate and multiple screws traverse the distal tibia with excellent anatomical alignment of the f racture fragments and there are 2 screws traversing the medial malleolus. CONCLUSION: Intact postsurgical changes for technique. Kamilla Villalba MD on June 12, 2017 at 15:29 Board Certified Radiologist. This report was verified electronically.
[2017-06-12] MEDS ORDERED: fentaNYL CITRATE 250 MCG/5 ML AMP ONE (15:44)
[2017-06-12] MEDS: MORPHINE SULFATE 30 MG/30 ML PCA IV SCH (15:49)
[2017-06-12] MEDS: SODIUM CHLOR 0.9% 1000 ML INJ 1,000 ML IV SCH (16:00)
[2017-06-12 16:10] VITALS: BP 124/72; PULSE 90; RESP 18; TEMP 97; O2SAT 100
[2017-06-12] MEDS ORDERED: DO NOT ADM ANY ANTICOAGULANT DRUGS PRN (16:15)
[2017-06-12] MEDS: RIVAROXABAN 10 MG TAB PO SCH (16:20)
[2017-06-12 19:57] VITALS: BP 108/68; PULSE 97; RESP 16; TEMP 97.5; O2SAT 95
[2017-06-12] MEDS: ZIPRASIDONE HCL 40 MG CAP PO SCH (20:31)
[2017-06-12] MEDS: DOCUSATE SODIUM 50 MG/SENNA 8.6 MG TAB PO SCH (20:31)
[2017-06-12] MEDS: SODIUM CHLORIDE 0.9% FLUSH 10 ML FLUSH IV FLUSH SCH (20:32)
[2017-06-12] MEDS ORDERED: SODIUM CHLORIDE 0.9% FLUSH 10 ML FLUSH IV FLUSH SCH (21:00)
[2017-06-12] MEDS ORDERED: DOCUSATE SODIUM 50 MG/SENNA 8.6 MG TAB PO SCH (21:00)
[2017-06-12] MEDS ORDERED: LISINOPRIL 5 MG TAB PO SCH (21:00)
[2017-06-12] MEDS: PCA - TOTAL MG MORPHINE DELIVERED PER SHIFT SCH (22:00)
[2017-06-13] MEDS: SODIUM CHLOR 0.9% 1000 ML INJ 1,000 ML IV SCH ×2 (00:09→12:00)
[2017-06-13 00:30] VITALS: BP 99/61; PULSE 78; RESP 17; TEMP 96.7; O2SAT 95
[2017-06-13 04:05] VITALS: BP 107/66; PULSE 92; RESP 16; TEMP 97.8; O2SAT 96
[2017-06-13 05:00] VITALS: RESP 18
[2017-06-13] MEDS: MORPHINE SULFATE 30 MG/30 ML PCA IV SCH (05:45)
[2017-06-13] MEDS: PCA - TOTAL MG MORPHINE DELIVERED PER SHIFT SCH (06:00)
[2017-06-13 06:25] LABS: AUTOMATED NEUTROPHIL # 8.8 TH/MM3 (1.8-7.7); BASOPHIL % 0.1 % (0.0-2.0); HEMATOCRIT 32.8 % (35.0-46.0); HEMO FLAGS DIFF FINAL; LYMPH % 12.3 % (9.0-44.0); LYMPHOCYTE # 1.4 TH/MM3 (1.0-4.8); MEAN CELL VOLUME 92.3 FL (80.0-100.0); MEAN CORPUSCULAR HEMOGLOBIN 31.1 PG (27.0-34.0); MEAN CORPUSCULAR HGB CONC 33.7 % (32.0-36.0); MONO % 8.4 % (0.0-8.0); NEUT % 79.2 % (16.0-70.0); PLATELET COUNT 278 TH/MM3 (150-450); RED BLOOD COUNT 3.55 MIL/MM3 (4.00-5.30); RED CELL DISTRIBUTION WIDTH 14.8 % (11.6-17.2); WHITE BLOOD COUNT 11.1 TH/MM3 (4.0-11.0)
[2017-06-13 07:03] LABS: BICARBONATE 26.2 MEQ/L (21.0-32.0); POTASSIUM 4.3 MEQ/L (3.5-5.1)
[2017-06-13 08:00] VITALS: BP 101/67; PULSE 89; RESP 16; TEMP 97; O2SAT 95
[2017-06-13] MEDS: GABAPENTIN 300 MG CAP PO SCH (08:35)
[2017-06-13] MEDS: oxyCODONE/ACETAMINOPHEN 5 MG/325 MG TAB PO PRN ×2 (08:35→13:48)
[2017-06-13] MEDS: ZIPRASIDONE HCL 40 MG CAP PO SCH (08:35)
[2017-06-13] MEDS: DOCUSATE SODIUM 50 MG/SENNA 8.6 MG TAB PO SCH (08:36)
[2017-06-13] MEDS: SODIUM CHLORIDE 0.9% FLUSH 10 ML FLUSH IV FLUSH SCH (08:38)
[2017-06-13] MEDS ORDERED: FLUoxetine HCL 20 MG CAP PO SCH (09:00)
[2017-06-13] MEDS ORDERED: OXYC1TAB63 PO (09:26)
[2017-06-13] MEDS ORDERED: WALKER WHEELS/F1 MIS (09:26)
[2017-06-13] MEDS ORDERED: XARE10TA PO (09:26)
--- NOTE | 2017-06-13 09:34 | PD.ORT.PN ---
Subjective Post Op Day #: 1 Subjective Remarks Pt sitting upright in bed eating breakfast. She admits her left lower extremity pain is well controlled and feels 'much better than yesterday'. She feels ready for discharge to home today. She feels comfortable performing her own daily dressing changes and exercises. No other comments. Objective Vitals Vital Signs Date Time Temp Pulse Resp B/P Pulse Ox O2 Delivery O2 Flow Rate FiO2 06/13/17 06:00 18 06/13/17 05:55 18 06/13/17 05:45 18 06/13/17 05:00 18 06/13/17 04:05 97.8 92 16 107/66 96 06/13/17 01:03 Room Air 06/13/17 00:30 96.7 78 17 99/61 95 06/12/17 22:00 18 06/12/17 19:57 97.5 97 16 108/68 95 06/12/17 16:10 97.0 90 18 124/72 100 06/12/17 15:55 92 19 126/71 100 Nasal Cannula 2 06/12/17 15:49 16 06/12/17 15:45 97 19 148/81 100 Nasal Cannula 2 06/12/17 15:30 100 19 144/87 100 Nasal Cannula 2 06/12/17 15:27 98.5 114 19 146/78 100 Nasal Cannula 2 06/12/17 12:04 75 16 100/62 99 06/12/17 11:42 15 06/12/17 10:59 63 16 102/57 100 Room Air I/O 06/12/17 06/12/17 06/12/17 06/13/17 06/13/17 06/13/17 07:00 15:00 23:00 07:00 15:00 23:00 Intake Total 2461 ml 1513 ml Output Total 51 ml Balance 2410 ml 1513 ml Intake Oral 720 ml 720 ml IV Total 441 ml 793 ml Other 1300 ml Output Urine Total 1 ml Estimated Blood Loss 50 ml Other 0 ml # Voids 3 2 Result Diagram: 06/13/17 0453 06/13/17 0453 Other Results Laboratory Tests Test 06/12/17 10:50 Prothrombin Time 10.7 SEC (9.8-11.6) Prothromb Time International 1.0 RATIO Ratio Imaging Last Impressions Ankle X-Ray 06/12/17 0000 Signed Impressions: Service Date/Time: Monday, June 12, 2017 14:34 - CONCLUSION: Intact postsurgical changes for technique. Kamilla Villalba MD Procedures Open reduction and fixation left ankle bimalleolar fracture Objective Remarks LLE: splint and Dressing dry and intact. Tender to palpation with mild swelling around incision site. Appropriate range of motion expected post operatively. Freely able to move distal digits. No calf pain. Good cap refill. 2+ pedal pulses. Neurovascular intact. Assessment & Plan Ortho Post Op Day #: 1 Problem List: (1) Displaced bimalleolar fracture of left ankle (2) Fall Assessment and Plan POD #1 Open reduction and fixation left ankle bimalleolar fracture Ortho status stable. Progress rehab - non w/b LLE. Pt to work with PT for gait training and a home exercise program before discharge. Fracture boot ordered. RN to change dressing and instruct pt on wound care before discharge. Xarelto for DVT prophylaxis. Clear for discharge from an orthopedic standpoint with [facility]- Rx on chart. Per discussion with PT - they are recommending pt be discharged with [facility] for PT/ gait training. F/U with Dr Canas in 1 week for wound check/suture removal. Sarah Moran Jun 13, 2017 09:34
--- NOTE | 2017-06-13 11:15 | HHI.FF ---
Face to Face Verification Diagnosis: (1) Displaced bimalleolar fracture of left ankle (2) Fall Physical Therapy Gait training, Safety evaluation Left LE Weight Bearing: Non WB Left LE Range of Motion: Passive ROM Nursing RN: 3 days/week x 2 weeks Dressing Changes: Daily dressing change Additional Instructions RN to d/c arley/sutures 06/21/17 I have seen patient Rocio Lucio on 06/13/17. My clinical findings support the need for the requested home health care services because: Ltd mobility - disease progression High risk of falls I certify that my clinical findings support that this patient is homebound because: Post-op weakness Unsteady gait/balance Sarah Moran Jun 13, 2017 11:15
[2017-06-13] MEDS ORDERED: CRUTMIS25 (11:19)
[2017-06-13 12:00] VITALS: BP 96/62; PULSE 80; RESP 16; TEMP 96.9; O2SAT 96
--- NOTE | 2017-06-13 12:49 | EKG ---
Date Performed: 06/12/2017 Time Performed: 11:00:51 PTAGE: 61 years EKG: Sinus rhythm POSSIBLE LEFT ATRIAL ENLARGEMENT BORDERLINE ECG INTERPRETATION BASED ON A DEFAULT AGE OF 40 YEARS PREVIOUS TRACING : 02/24/2017 12.15 Since prior tracing, previously seen nonspecific bradford ges have improved. DOCTOR: Sarath Bautista Interpretating Date/Time 06/13/2017 12:49:24
[2017-06-13] MEDS: RIVAROXABAN 10 MG TAB PO SCH (13:48)
--- NOTE | 2017-06-13 14:05 | HHI.DS ---
Discharge Summary Admission Date Jun 12, 2017 at 11:46 Discharge Date: Jun 13, 2017 Admitting Diagnosis Ankle fracture (1) Displaced bimalleolar fracture of left ankle ICD Code: S82.842A Diagnosis: Principal (2) Fall ICD Code: W19.XXXA Diagnosis: Principal Procedures Left ankle fracture repair. Brief History - From Admission Mrs. Lucio is a 61-year-old female. She is here secondary to a trip and fall last night in which she sustained an injury of her left ankle. She has a bilateral malleolar fracture in plan for surgical repair today is present. Pain is under control when seen. She is about to enter the operating room. Baseline medical conditions are bipolar disorder hypertension, insomnia, and depression. She is active at baseline and should do well with PT postop. No other complaints. Pain was her primary complaint without any numbness of the foot. CBC/BMP: 06/13/17 0453 06/13/17 0453 Significant Findings Laboratory Tests Test 06/12/17 06/13/17 10:50 04:53 Mean Platelet Volume 6.7 FL (7.0-11.0) Neutrophils (%) (Auto) 79.2 % 79.2 % (16.0-70.0) (16.0-70.0) Monocytes (%) (Auto) 8.3 % (0.0-8.0) 8.4 % (0.0-8.0) Activated Partial 23.8 SEC Thromboplast Time (24.3-30.1) Sodium Level 133 MEQ/L (136-145) Potassium Level 5.4 MEQ/L (3.5-5.1) Estimat Glomerular Filtration 63 ML/MIN (>89) 72 ML/MIN (>89) Rate White Blood Count 11.1 TH/MM3 (4.0-11.0) Red Blood Count 3.55 MIL/MM3 (4.00-5.30) Hemoglobin 11.0 GM/DL (11.6-15.3) Hematocrit 32.8 % (35.0-46.0) Neutrophils # (Auto) 8.8 TH/MM3 (1.8-7.7) Blood Urea Nitrogen 5 MG/DL (7-18) Random Glucose 119 MG/DL (74-106) Calcium Level 8.2 MG/DL (8.5-10.1) Hospital Course Mrs. Lucio is a 61-year-old female. She was admitted secondary to a fall in which she sustained a bimalleolar fracture of the left ankle. Surgery was performed on this yesterday. Patient is recovering well. Pain under control. No acute distress when seen today. She is able to ambulate with crutches and is medically stable for discharge home today. Orthopedics are clear to for discharge. Patient will be discharged today. Pt Condition on Discharge: Stable Discharge Disposition: Disch w/ Home Health Serv Discharge Time: <= 30 minutes Discharge Instructions DIET: Follow Instructions for: As Tolerated, No Restrictions Activities you can perform: Non Weight Bearing Activities to Avoid: Lifting/Bending Follow up Referrals: Orthopedics - 1 Week @ [facility] with Gennaro Canas MD PCP Follow-up - 2 Weeks SNF/[facility]/ with [facility] New Medications: Crutch/Aluminum/Adult (Crutch/Aluminum/Adult) 1 Mis Mis 1 EA .ROUTE DIRECTED #1 EA Walker with Front Wheels (Walker with Front Wheels) 1 Mis Mis 1 EA .ROUTE DIRECTED #1 Ref 0 EA Oxycodone-Acetaminophen (Oxycodone-Acetaminophen) 5-325 mg Tab 2 TAB PO Q4H PRN PAIN SCALE 5 TO 10 #40 TAB Rivaroxaban (Xarelto) 10 Mg Tab 10 MG PO Q24H Prevent Blood Clot #20 TAB Jan Irizarry MD Jun 13, 2017 14:05
== END 2017-06-13 15:55 | disposition home health service (06) | DRG 494 ==
LOC: NEPD 08:34 → NEDA 11:46 → N06A 16:05
PROVIDERS: ADMIT Hospitalist; ATTEND Hospitalist
PROC: 0QSH04Z Reposition Left Tibia with Internal Fixation Device, Open Approach (ICD-10-PCS; 2017-06-12)
PROC: 0QSKXZZ Reposition Left Fibula, External Approach (ICD-10-PCS; 2017-06-12)
PROC: 0QSHXZZ Reposition Left Tibia, External Approach (ICD-10-PCS; 2017-06-12)
PROC: 0QSK04Z Reposition Left Fibula with Internal Fixation Device, Open Approach (ICD-10-PCS; principal; 2017-06-12 13:02)
DX: S82.842A Displaced bimalleolar fracture of left lower leg, initial encounter for closed fracture (principal); I10 Essential (primary) hypertension; F31.9 Bipolar disorder, unspecified; F17.210 Nicotine dependence, cigarettes, uncomplicated; G47.00 Insomnia, unspecified; G89.29 Other chronic pain; M17.0 Bilateral primary osteoarthritis of knee; W01.0XXA Fall on same level from slipping, tripping and stumbling without subsequent striking against object, initial encounter; Y92.002 Bathroom of unspecified non-institutional (private) residence as the place of occurrence of the external cause; Z86.73 Personal history of transient ischemic attack (TIA), and cerebral infarction without residual deficits
CPT/HCPCS: 73600; 73610; 76000; 80048; 85025; 85610; 85730; 93005; 94150; C1713; J0131; J0690; J1100; J1170; J1580; J2250; J2270; J2405; J3010; J3370; J7030; J7120; L2114

== ENCOUNTER 2017-07-03 13:48 | Inpatient (IN) | payer OTHER, MEDICARE ==
[~2017-07-03] VITALS: Ht 157.5 cm; Wt 51.0 kg
[~2017-07-03 13:48] MED LIST changes: +CRUTMIS25; -MISC-274; +OXYC1TAB63 PO; -PROM25TA5 PO; +WALKER WHEELS/F1 MIS; +XARE10TA PO; -ZOFR4TAB3 SL
[2017-07-03 13:50] VITALS: BP 117/60; PULSE 66; RESP 14; TEMP 97.5; O2SAT 99
--- NOTE | 2017-07-03 13:58 | PD ---
Physical Exam Date Seen by Provider: Jul 03, 2017 Time Seen by Provider: 13:53 Data Data Last Documented VS Vital Signs Date Time Temp Pulse Resp B/P Pulse Ox O2 Delivery O2 Flow Rate FiO2 07/03/17 13:50 97.5 66 14 117/60 99 MDM Supervised Visit with CELIA: No Narrative Course 61 YO F with complaint of possible left ankle infection. Patient had surgery to repair ankle fracture ~ [address] Canas. Home health concerned for redness and discharge from the wound today. Patient denies F/C, increased pain. Vitals reviewed. Patient seen in triage, awaiting bed placement. Berna Sierra Jul 03, 2017 13:58
[2017-07-03] MEDS ORDERED: VANCOMYCIN INJ 1,000 MG in SODIUM CHLOR 0.9% 250 ML INJ 250 ML IV ONE (14:30)
[2017-07-03] MEDS ORDERED: PIPERACIL-TAZO 3.375 GM PREMIX 50 ML IV ONE (14:30)
--- NOTE | 2017-07-03 14:40 | PD ---
HPI Chief Complaint: Skin Problem Time Seen by Provider: 14:35 Travel History International Travel<30 days: No Contact w/Intl Traveler<30days: No Traveled to known affect area: No History of Present Illness HPI 61-year-old female that presents to the ED for evaluation of possible infection to wound. Patient had a fracture that was repaired about a month ago by Dr. Canas of the left ankle. Per patient for the past 3-4 days she's noted discharge from the wound. Patient had the sutures removed by Dr. Canas last week and had no issues but Dr. Bonner did evaluated the wound recently and was concerning for infection. Patient was told to come here by staff from Dr. Canas office. Patient denies any fevers chills or sweats. Patient takes no antibiotics at this time. No other injuries reported. She is not wearing the cast but a walking boot. She does have an allergy to Toradol. There is drainage coming from the wound on the left lateral wound as well as on the medial wall. More noted on the lateral. Does appear to be red and warm to the touch. Some swelling noted. No obvious suturing or foreign body noted. Patient did have hardware put in place. Per patient her current pain is 6 out of 10 and only hurts to put weight on it. Per patient this has not changed even with infection. PFSH Past Medical History Hx Anticoagulant Therapy: No Arthritis: Yes Bipolar Disorder: Yes Anxiety: Yes Cancer: No Cardiovascular Problems: Yes (HTN) Chemotherapy: No Cerebrovascular Accident: Yes (2011) Diabetes: No Diminished Hearing: No Endocrine: No Genitourinary: No Hepatitis: No Hiatal Hernia: No Hypertension: Yes Immune Disorder: Yes (LUPUS) Musculoskeletal: Yes (arthritis) Neurologic: Yes (stroke and seizure 2011) Psychiatric: Yes (bipolar, anxiety) Reproductive: No Respiratory: No Seizures: Yes Thyroid Disease: No Past Surgical History Abdominal Surgery: No AICD: No Body Medical Devices: BREASTS Cardiac Surgery: No Ear Surgery: No Endocrine Surgery: No Eye Surgery: No Genitourinary Surgery: No Gynecologic Surgery: Yes (hysterectomy 1999) Hysterectomy: Yes (2004) Joint Replacement: Yes (INDER KNEE REPLACEMENT) Oral Surgery: Yes (tonsillectomy) Pacemaker: No Thoracic Surgery: Yes (BREAST AUGMENTATION 1979, 2004) Tonsillectomy: Yes Other Surgery: Yes Social History Alcohol Use: Yes (OCC) Tobacco Use: Yes (3 CIGS/DAY) Substance Use: No Allergies-Medications (Allergen,Severity, Reaction): Coded Allergies: Toradol (Verified Allergy, Unknown, Rash, 07/03/17) Reported Meds & Prescriptions Reported Meds & Active Scripts Active Crutch/Aluminum/Adult (Device) 1 Mis Mis 1 Ea .ROUTE DIRECTED Walker with Front Wheels (Device) 1 Mis Mis 1 Ea .ROUTE DIRECTED Xarelto (Rivaroxaban) 10 Mg Tab 10 Mg PO Q24H Reported Oxycodone-Acetaminophen 5-325 mg Tab 2 Tab PO Q12HR PRN Trazodone (Trazodone HCl) 50 Mg Tab 50 Mg PO HS PRN Prozac (Fluoxetine HCl) 40 Mg Cap 40 Mg PO DAILY Lisinopril 2.5 Mg Tab 2.5 Mg PO HS Zolpidem (Zolpidem Tartrate) 5 Mg Tab 5 Mg PO HS PRN Ziprasidone 40 Mg Cap 40 Mg PO BID Aspirin 325 Mg Tab 325 Mg PO DAILY Gabapentin 600 Mg Tab 600 Mg PO TID Review of Systems Except as stated in HPI: all other systems reviewed are Neg Physical Exam Narrative GENERAL: SKIN: Warm and dry. HEAD: Atraumatic. Normocephalic. EYES: Pupils equal and round. No scleral icterus. No injection or drainage. ENT: No nasal bleeding or discharge. Mucous membranes pink and moist. Tongue is midline. No uvula deviation. NECK: Trachea midline. No JVD. CARDIOVASCULAR: Regular rate and rhythm. No murmurs, S3, S4. RESPIRATORY: No accessory muscle use. Clear to auscultation. Breath sounds equal bilaterally. GASTROINTESTINAL: Abdomen soft, non-tender, nondistended. Hepatic and splenic margins not palpable. MUSCULOSKELETAL: Extremities without clubbing, cyanosis, or edema. No obvious deformities. Full range of motion of the upper and lower extremities bilaterally. Patient does have a surgical wounds on the left ankle on the medial and lateral aspect just superior to the malleolus. Both appear to be draining greenish yellowish fluid and the one on the lateral side appears to be erythematous and warm to the touch. NEUROLOGICAL: Awake and alert. No obvious cranial nerve deficits. Motor grossly within normal limits. Five out of 5 muscle strength in the arms and legs. Normal speech. PSYCHIATRIC: Appropriate mood and affect; insight and judgment normal. Data Data Last Documented VS Vital Signs Date Time Temp Pulse Resp B/P Pulse Ox O2 Delivery O2 Flow Rate FiO2 07/03/17 16:15 57 16 132/68 100 Room Air 07/03/17 13:50 97.5 Orders Ankle, Complete ([id number]) (07/03/17 14:24) Basic Metabolic Panel (Bmp) (07/03/17 14:24) Complete Blood Count With Diff (07/03/17 14:24) Blood Culture (07/03/17 14:24) Wound Culture And Gram Stain (07/03/17 14:24) Iv Access Insert/Monitor (07/03/17 14:24) Vancomycin Inj (Vancomycin Inj) (07/03/17 14:30) Piperacil-Tazo 3.375 Gm Premix (Zosyn 3. (07/03/17 14:30) Lactic Acid (07/03/17 14:24) C-Reactive Protein (Crp) (07/03/17 14:24) Morphine Inj (Morphine Inj) (07/03/17 15:45) Ondansetron Inj (Zofran Inj) (07/03/17 15:45) Admit Order (Ed Use Only) (07/03/17 16:43) Admit To Inpatient (07/03/17 ) Code Status (07/03/17 16:45) Vital Signs (Adult) Q4H (07/03/17 16:45) Activity Oob Ad Alexandra (07/03/17 16:45) Bedside Glucose LENNY.AC&HS (07/03/17 16:45) Transportation Aide / Telemetry .CONTINUOUS (07/03/17 16:45) Intake + Output LENNY.QSHIFT (07/03/17 16:45) Diet 1800 Ada Cons Carb (07/03/17 Dinner) Sodium Chlor 0.9% 1000 Ml Inj (Ns 1000 M (07/03/17 16:45) Sodium Chloride 0.9% Flush (Ns Flush) (07/03/17 16:45) Sodium Chloride 0.9% Flush (Ns Flush) (07/03/17 21:00) Acetaminophen (Tylenol) (07/03/17 16:45) Ondansetron Inj (Zofran Inj) (07/03/17 16:45) Metoclopramide Inj (Reglan Inj) (07/03/17 16:45) Prochlorperazine Supp (Compazine Supp) (07/03/17 16:45) Comprehensive Metabolic Panel (07/04/17 06:00) Complete Blood Count With Diff (07/04/17 06:00) Prothrombin Time / Inr (Pt) (07/04/17 06:00) Blood Culture (07/03/17 16:45) Urinalysis - C+S If Indicated (07/03/17 16:45) Chest, Single Ap (07/03/17 16:45) Electrocardiogram (07/03/17 16:45) Resp Oxygen Rasheed C Titrat 1-4 L (07/03/17 ) Case Management Consult (07/03/17 16:45) Scd Bilateral/Knee High LENNY.BID (07/03/17 16:45) [place] Bilateral/Knee High LENNY.QSHIFT (07/03/17 16:45) Morphine Inj (Morphine Inj) (07/03/17 16:45) Morphine Inj (Morphine Inj) (07/03/17 16:45) Morphine Inj (Morphine Inj) (07/03/17 16:45) Morphine Inj (Morphine Inj) (07/03/17 16:45) Naloxone Inj (Narcan Inj) (07/03/17 16:45) Docusate Sodium-Senna (Christina-Colace) (07/03/17 21:00) Magnesium Hydroxide Liq (Milk Of Magnesi (07/03/17 16:45) Sennosides (Senokot) (07/03/17 16:45) Bisacodyl Supp (Dulcolax Supp) (07/03/17 16:45) Lactulose Liq (Lactulose Liq) (07/03/17 16:45) Inpatient Certification (07/03/17 ) Consult Orthopedic (07/03/17 ) Labs Laboratory Tests Test 07/03/17 14:25 White Blood Count 8.5 TH/MM3 Red Blood Count 4.08 MIL/MM3 Hemoglobin 12.9 GM/DL Hematocrit 36.4 % Mean Corpuscular Volume 89.2 FL Mean Corpuscular Hemoglobin 31.7 PG Mean Corpuscular Hemoglobin 35.5 % Concent Red Cell Distribution Width 14.0 % Platelet Count 409 TH/MM3 Mean Platelet Volume 6.7 FL Neutrophils (%) (Auto) 73.9 % Lymphocytes (%) (Auto) 17.6 % Monocytes (%) (Auto) 7.2 % Eosinophils (%) (Auto) 0.8 % Basophils (%) (Auto) 0.5 % Neutrophils # (Auto) 6.3 TH/MM3 Lymphocytes # (Auto) 1.5 TH/MM3 Monocytes # (Auto) 0.6 TH/MM3 Eosinophils # (Auto) 0.1 TH/MM3 Basophils # (Auto) 0.0 TH/MM3 CBC Comment DIFF FINAL Differential Comment Sodium Level 131 MEQ/L Potassium Level 4.1 MEQ/L Chloride Level 98 MEQ/L Carbon Dioxide Level 24.8 MEQ/L Anion Gap 8 MEQ/L Blood Urea Nitrogen 7 MG/DL Creatinine 0.90 MG/DL Estimat Glomerular Filtration 64 ML/MIN Rate Random Glucose 74 MG/DL Lactic Acid Level 2.1 mmol/L Calcium Level 8.9 MG/DL C-Reactive Protein 0.35 MG/DL MDM Medical Decision Making Medical Screen Exam Complete: Yes Emergency Medical Condition: Yes Medical Record Reviewed: Yes Interpretation(s) CBC & BMP Diagram 07/03/17 14:25 Last Impressions Ankle X-Ray 07/03/17 1424 Signed Impressions: Service Date/Time: Wednesday, July 03, 2017 14:38 - CONCLUSION: Surgical changes as above. No convincing radiographic evidence of osteomyelitis. Regino Cheatham MD lactic acid of 2.1 CRP slightly elevated Differential Diagnosis Infected wound versus cellulitis versus abscess versus osteomyelitis Narrative Course 61-year-old female that presents to the ED for evaluation of possible infection to surgical wound. Labs and imaging were ordered. Patient was started IV antibiotics. Labs and imaging showed elevated lactic acid and CRP. Case discussed in my attending who evaluated the patient with me and agrees with admission for infection pending consultation with orthopedic surgeon. Call to ortho production engineer track placed. Dr. Hackett who recommends admission, wound culture and Vancomycin. He will see and admission. Case discussed with Dr. chappell for [facility] who agrees to admission. Diagnosis Primary Impression: Surgical wound infection Qualified Code: T81.4XXA - Postoperative wound infection, initial encounter Admitting Information Admitting Physician Requests: Daquan Wayne Jul 03, 2017 14:40
[2017-07-03] MEDS ORDERED: OXYC1TAB63 PO (14:44)
--- NOTE | 2017-07-03 15:02 | RADRPT ---
EXAM DATE/TIME: 07/03/2017 14:38 [facility] COMPARISON: ANKLE LEFT LIMITED (AP&LAT), June 12, 2017, 14:34. INDICATIONS : Patient had ORIF to left ankle 1 month ago and has possible infection now. Pain to left ankle. MEDICAL HISTORY : None. SURGICAL HISTORY : ORIF Lt ankle. ENCOUNTER: Initial ACUITY: 1 day PAIN SCORE: Non-responsive. LOCATION: Left Ankle FINDINGS: Patient is status post screw and plate fixation of the distal fibula and screw and pin fixation of th e medial malleolus, both appearing in unchanged and in near-anatomic alignment. There appears to be s ome early healing of both fractures. No evidence of acute bone destruction. CONCLUSION: Surgical changes as above. No convincing radiographic evidence of osteomyelitis. Regino Cheatham MD on July 03, 2017 at 14:58 Board Certified Radiologist. This report was verified electronically.
[2017-07-03 15:03] LABS: AUTOMATED NEUTROPHIL # 6.3 TH/MM3 (1.8-7.7); BASOPHIL % 0.5 % (0.0-2.0); EOSINOPHIL # 0.1 TH/MM3 (0-0.4); EOSINOPHIL % 0.8 % (0.0-4.0); HEMATOCRIT 36.4 % (35.0-46.0); HEMO FLAGS DIFF FINAL; LYMPH % 17.6 % (9.0-44.0); LYMPHOCYTE # 1.5 TH/MM3 (1.0-4.8); MEAN CELL VOLUME 89.2 FL (80.0-100.0); MEAN CORPUSCULAR HEMOGLOBIN 31.7 PG (27.0-34.0); MEAN CORPUSCULAR HGB CONC 35.5 % (32.0-36.0); MONO % 7.2 % (0.0-8.0); NEUT % 73.9 % (16.0-70.0); PLATELET COUNT 409 TH/MM3 (150-450); RED BLOOD COUNT 4.08 MIL/MM3 (4.00-5.30); WHITE BLOOD COUNT 8.5 TH/MM3 (4.0-11.0)
[2017-07-03 15:18] LABS: BICARBONATE 24.8 MEQ/L (21.0-32.0); POTASSIUM 4.1 MEQ/L (3.5-5.1)
[2017-07-03] MEDS ORDERED: MORPHINE SULFATE 4 MG/ML INJ IV PUSH ONE (15:45)
[2017-07-03] MEDS ORDERED: ONDANSETRON HCL 4 MG/2 ML VIAL IV PUSH ONE (15:45)
[2017-07-03 16:15] VITALS: BP 132/68; PULSE 57; RESP 16; O2SAT 100
[2017-07-03] MEDS ORDERED: NALOXONE HCL 0.4 MG/ML AMP IV PRN (16:45)
[2017-07-03] MEDS ORDERED: PROCHLORPERAZINE 25 MG SUPP RECTAL PRN (16:45)
[2017-07-03] MEDS ORDERED: MAGNESIUM HYDROXIDE SUSP 30 ML CUP PO PRN (16:45)
[2017-07-03] MEDS ORDERED: MORPHINE SULFATE 4 MG/ML INJ IV PRN ×4 (16:45)
[2017-07-03] MEDS ORDERED: ONDANSETRON HCL 4 MG/2 ML VIAL IVP PRN (16:45)
[2017-07-03] MEDS ORDERED: SODIUM CHLORIDE 0.9% FLUSH 10 ML FLUSH IV FLUSH PRN (16:45)
[2017-07-03] MEDS ORDERED: LACTULOSE SYRUP 20 GM/30 ML CUP PO PRN (16:45)
[2017-07-03] MEDS ORDERED: SENNOSIDES 8.6 MG TAB PO PRN (16:45)
[2017-07-03] MEDS ORDERED: METOCLOPRAMIDE HCL 10 MG/2 ML VIAL IV PUSH PRN (16:45)
[2017-07-03] MEDS ORDERED: BISACODYL 10 MG SUPP RECTAL PRN (16:45)
[2017-07-03] MEDS ORDERED: ACETAMINOPHEN 325 MG TAB PO PRN (16:45)
[2017-07-03] MEDS ORDERED: ZOLPIDEM TARTRATE 5 MG TAB PO PRN (17:00)
[2017-07-03] MEDS ORDERED: Vancomycin Consult Pharmacy 1 EA OTHER SCH (17:00)
--- NOTE | 2017-07-03 17:20 | RADRPT ---
EXAM DATE/TIME: 07/03/2017 16:56 [facility] COMPARISON: No previous studies available for comparison. INDICATIONS : Infection in foot. MEDICAL HISTORY : None. SURGICAL HISTORY : None. ENCOUNTER: Initial ACUITY: 4 - 6 days PAIN SCORE: 0/10 LOCATION: Bilateral chest FINDINGS: A single view of the chest demonstrates the lungs to be symmetrically aerated without evidence of mas s, infiltrate or effusion. The cardiomediastinal contours are unremarkable. Osseous structures are intact. CONCLUSION: No evidence of acute cardiopulmonary disease. Regino Cheatham MD on July 03, 2017 at 17:16 Board Certified Radiologist. This report was verified electronically.
[2017-07-03 18:00] VITALS: BP 132/73; PULSE 59; RESP 17; TEMP 95.7; O2SAT 98
--- NOTE | 2017-07-03 18:17 | HHI.HP ---
[facility] Service [place] [place] [facility] Primary Care Physician Juan Bonner MD Admission Diagnosis surgical wound infection to ankle Diagnoses: (1) Fall Diagnosis: Secondary (2) Surgical wound infection Diagnosis: Principal (3) DJD (degenerative joint disease) of knee Diagnosis: Secondary (4) Bipolar 1 disorder Diagnosis: Secondary (5) Seizure Diagnosis: Secondary (6) Hypertension Diagnosis: Secondary (7) CVA (cerebral vascular accident) Diagnosis: Secondary Chief Complaint: Left ankle surgical wound infection Travel History International Travel<30 Days: No Contact w/Intl Traveler <30 Da: No Traveled to Known Affected Are: No History of Present Illness Written by Michelle Connolly, acting as scribe for Dr. Castrejon on 07/03/17 at 18:00. Mrs. Lucio is a 61-year-old female patient with a known medical history of hypertension, history of CVA, lupus and bipolar disorder who presented to the ED with complaints of possible infection to left ankle surgical wound. Patient sustained a bilateral malleolar fracture last month on June 02. She underwent an open reduction and fixation of the left ankle by Dr. Canas. Per records and patient, upon discharge ankle appeared to be healing with no signs of infection. Patient last saw Dr. Canas in the office last week when the sutures were removed with no apparent issues. She also has had a [facility] nurse coming several times a week to clean and dress the wound appropriately. She states she noticed for the past 3 days that the ankle wound had increased in serous drainage and presented to her PCP with advice to come to ED for further evaluation. Patient denies any other associated symptoms or illness including fever, chills, cough, headache, chest pain, shortness of breath, abdominal pain , nausea, vomiting, diarrhea or dysuria. Denies any recent trauma to area or falls. Does admit to wearing orthopedic boot during ambulation. Currently in the ED patient states the pain to the left ankle is a 2/10 on pain scale with movement, denies pain at rest. Lateral and medical wound pink in color with serous drainage. Warm to palpation. Denies any numbness or tingling to lower left extremity. No edema noted. She did have some pus oozing from this location on her left ankle. Review of Systems Constitutional: DENIES: Diaphoretic episodes, Fatigue, Fever, Weight gain, Weight loss, Chills, Dizziness, Change in appetite, Night Sweats Eyes: DENIES: Blurred vision, Diplopia, Eye inflammation, Eye pain, Vision loss , Photosensitivity Ears, nose, mouth, throat: DENIES: Tinnitus, Hearing loss, Vertigo, Nasal discharge, Oral lesions, Running Nose, Epistaxis Respiratory: DENIES: Apneas, Cough, Snoring, Wheezing Cardiovascular: DENIES: Chest pain, Palpitations, Syncope, Dyspnea on Exertion Gastrointestinal: DENIES: Abdominal pain, Black stools, Bloody stools, Constipation Genitourinary: DENIES: Abnormal vaginal bleeding Musculoskeletal: COMPLAINS OF: Joint pain Integumentary: DENIES: Abnormal pigmentation, Pruritus Hematologic/lymphatic: DENIES: Bruising, Lymphadenopathy Immunologic/allergic: DENIES: Eczema, Urticaria Neurologic: DENIES: Abnormal gait, Headache, Localized weakness, Paresthesias Psychiatric: COMPLAINS OF: Anxiety, Depression, DENIES: Confusion, Mood changes Except as stated in HPI: all other systems reviewed are Neg Left ankle surgical wound redness, swelling and increased drainage. Past Family Social History Past Medical History Bipolar disorder Hypertension Chronic neck and back pain Osteoarthritis of bilateral knees Lupus Past Surgical History Tonsillectomy Left knee arthroplasty 2016 Hysterectomy Bilateral mammoplasty Laparotomy for abdominal adhesions Open reduction and fixation of left ankle bimalleolar fracture. Reported Medications Active Crutch/Aluminum/Adult (Device) 1 Mis Mis 1 Ea .ROUTE DIRECTED Walker with Front Wheels (Device) 1 Mis Mis 1 Ea .ROUTE DIRECTED Xarelto (Rivaroxaban) 10 Mg Tab 10 Mg PO Q24H Reported Oxycodone-Acetaminophen 5-325 mg Tab 2 Tab PO Q12HR PRN Trazodone (Trazodone HCl) 50 Mg Tab 50 Mg PO HS PRN Prozac (Fluoxetine HCl) 40 Mg Cap 40 Mg PO DAILY Lisinopril 2.5 Mg Tab 2.5 Mg PO HS Ziprasidone 40 Mg Cap 40 Mg PO BID Aspirin 325 Mg Tab 325 Mg PO DAILY Gabapentin 600 Mg Tab 600 Mg PO TID Allergies: Coded Allergies: Toradol (Verified Allergy, Unknown, Rash, 07/03/17) Active Ordered Medications Current Medications Medications (Trade) Dose Ordered Sig/Ivan Route Start Time Stop Time Status Last Admin (NS 1000 ml Inj) 1,000 ml @ 100 mls/hr Q10H IV 07/03/17 18:00 (NS Flush) 2 ml UNSCH PRN IV FLUSH 07/03/17 16:45 (NS Flush) 2 ml BID IV FLUSH 07/03/17 21:00 (Tylenol) 650 mg Q4H PRN PO 07/03/17 16:45 (Zofran Inj) 4 mg Q6H PRN IVP 07/03/17 16:45 (Reglan Inj) 5 mg Q6H PRN IV PUSH 07/03/17 16:45 (Compazine Supp) 25 mg Q12H PRN RECTAL 07/03/17 16:45 (Morphine Inj) 2 mg Q3H PRN IV 07/03/17 16:45 (Morphine Inj) 4 mg Q3H PRN IV 07/03/17 16:45 (Morphine Inj) 4 mg Q1H PRN IV 07/03/17 16:45 (Morphine Inj) 4 mg Q3H PRN IV 07/03/17 16:45 (Narcan Inj) 0.4 mg UNSCH PRN IV 07/03/17 16:45 (Christina-Colace) 1 tab BID PO 07/03/17 21:00 (Milk Of Magnesia Liq) 30 ml Q12H PRN PO 07/03/17 16:45 (Senokot) 17.2 mg Q12H PRN PO 07/03/17 16:45 (Dulcolax Supp) 10 mg DAILY PRN RECTAL 07/03/17 16:45 (Lactulose Liq) 30 ml DAILY PRN PO 07/03/17 16:45 (Aspirin) 325 mg DAILY PO 07/04/17 09:00 (Neurontin) 600 mg TID PO 07/03/17 18:00 (Percocet 5-325 Mg) 2 tab Q12HR PRN PO 07/03/17 17:00 (Desyrel) 50 mg HS PRN PO 07/03/17 17:00 (Geodon) 40 mg BID PO 07/03/17 21:00 (Ambien) 5 mg HS PRN PO 07/03/17 17:00 (PROzac) 40 mg DAILY PO 07/04/17 09:00 Lisinopril 2.5 mg 2.5 mg HS PO 07/03/17 21:00 Piperacillin Sod/ Tazobactam Sod 100 ml @ 200 mls/hr Q6H IV 07/03/17 21:00 (Vancomycin Consult Pharmacy) 0 ml @ 0 mls/hr UNSCH OTHER 07/03/17 17:00 (Pill Splitter) 1 ea UNSCH PRN OTHER 07/03/17 21:00 Family History Denies any significant family medical history of cardiovascular disease or cancer. Social History Patient is . States she has been trying to quit smoking, admits to a 40- pack-year smoking history. Currently smokes 3 cigarettes a day. Admits to occasional alcohol use. Denies any illicit drug use. Physical Exam Vital Signs Vital Signs Date Time Temp Pulse Resp B/P Pulse Ox O2 Delivery O2 Flow Rate FiO2 07/03/17 16:15 57 16 132/68 100 Room Air 07/03/17 13:50 97.5 66 14 117/60 99 Physical Exam GENERAL: Well-nourished, well-developed female patient lying in bed, in no apparent distress. SKIN: No rashes, ecchymoses or lesions.Left ankle surgical wound lateral and medial sides pink in color, serous drainage noted. Dressings in place, clean/dry /intact. HEAD: Atraumatic. Normocephalic.Pupils equal round and reactive. Extraocular motions intact. No injection or drainage. Nose without bleeding. Airway patent. NECK: Trachea midline. No JVD. Supple. CARDIOVASCULAR: Regular rate and rhythm. No murmur appreciated. S1 and S2 no S3 or S4 no heave or thrill or rub or gallop RESPIRATORY: Clear to auscultation. Breath sounds equal bilaterally. No wheezes , rales, or rhonchi. GASTROINTESTINAL: Abdomen soft, non-tender, nondistended. No guarding. MUSCULOSKELETAL: Extremities without clubbing, cyanosis, or edema. No joint tenderness, effusion, or edema noted. Left ankle wound with some drainage NEUROLOGICAL: Awake and alert. Cranial nerves II through XII intact. Motor and sensory grossly within normal limits. Five out of 5 muscle strength in all muscle groups. Normal speech. Insight and judgment appear good mood and behavior appropriate Laboratory Laboratory Tests Test 07/03/17 14:25 White Blood Count 8.5 Red Blood Count 4.08 Hemoglobin 12.9 Hematocrit 36.4 Mean Corpuscular Volume 89.2 Mean Corpuscular Hemoglobin 31.7 Mean Corpuscular Hemoglobin 35.5 Concent Red Cell Distribution Width 14.0 Platelet Count 409 Mean Platelet Volume 6.7 Neutrophils (%) (Auto) 73.9 Lymphocytes (%) (Auto) 17.6 Monocytes (%) (Auto) 7.2 Eosinophils (%) (Auto) 0.8 Basophils (%) (Auto) 0.5 Neutrophils # (Auto) 6.3 Lymphocytes # (Auto) 1.5 Monocytes # (Auto) 0.6 Eosinophils # (Auto) 0.1 Basophils # (Auto) 0.0 CBC Comment DIFF FINAL Differential Comment Sodium Level 131 Potassium Level 4.1 Chloride Level 98 Carbon Dioxide Level 24.8 Anion Gap 8 Blood Urea Nitrogen 7 Creatinine 0.90 Estimat Glomerular Filtration 64 Rate Random Glucose 74 Lactic Acid Level 2.1 Calcium Level 8.9 C-Reactive Protein 0.35 Date/Time Procedure Status Source Growth 07/03/17 14:40 Aerobic Blood Culture Received Blood Peripheral Pending 07/03/17 14:40 Anaerobic Blood Culture Received Blood Peripheral Pending 07/03/17 14:25 Gram Stain - Final Resulted Wound Ankle 07/03/17 14:25 Wound Culture Resulted Wound Ankle Pending Result Diagram: 07/03/17 1425 07/03/17 1425 Imaging Last Impressions Chest X-Ray 07/03/17 1645 Signed Impressions: Service Date/Time: Monday, July 03, 2017 16:56 - CONCLUSION: No evidence of acute cardiopulmonary disease. Regino Cheatham MD Ankle X-Ray 07/03/17 1424 Signed Impressions: Service Date/Time: Monday, July 03, 2017 14:38 - CONCLUSION: Surgical changes as above. No convincing radiographic evidence of osteomyelitis. Regino Cheatham MD Assessment and Plan Problem List: (1) Surgical wound infection ICD Code: T81.4XXA Status: Acute (2) Seizure ICD Code: R56.9 Status: Acute (3) Bipolar 1 disorder ICD Code: F31.9 Status: Acute (4) Hypertension ICD Code: I10 Status: Acute (5) CVA (cerebral vascular accident) ICD Code: I63.9 Status: Acute Assessment and Plan Mrs. Lucio is a 61-year-old female patient with a known medical history of hypertension, history of CVA, lupus and bipolar disorder who presented to the ED with complaints of possible infection to left ankle surgical wound. Patient sustained a bilateral malleolar fracture last month on June 02. She underwent an open reduction and fixation of the left ankle by Dr. Canas. She states she noticed for the past 3 days that the ankle wound had increased in serous drainage and presented to here PCP with advice to come to ED for further evaluation. Left ankle surgical wound infection: Will admit to inpatient. No leukocytosis. Afebrile. CRP elevated, 0.35. Lactic acid 2.1. Zosyn IV and Vanco IV x 1 given in ED. Ankle x-ray reviewed showing normal surgical changes, no osteomyelitis noted. CXR reviewed showing no signs of acute cardiopulmonary disease. Consult has been placed to Dr. Hackett. Wound culture ordered and pending. Blood cultures ordered and pending. UA ordered and pending. Follow. Start Zosyn 4.5 gram IV q6hr and Vancomycin IV. Control pain, Oxycodone PO PRN per pain scale and Morphine IV PRN per pain scale. NS at 100ml/hr. Hyponatremia suspect secondary to infection: Will continue work up and management as above. Will hydrate. Repeat BMP in am. Follow. Hypertension, chronic: Continue home Lisinopril. Controlled at this time. Monitor. Depression and bipolar history: stable at this time. Will continue home Prozac, Geodon and Trazodone. DVT prophylaxis: SCDs. The exam, history, and the medical decision-making described in the above note were completed with the assistance of the mid-level provider. I reviewed and agree with the findings presented. I attest that I had a [id number] encounter with the patient on the same day, and personally performed and documented my assessment and findings in the medical record. Physician Certification 2 Midnight Certification Type: Admission for Inpatient Services Order for Inpatient Services The services are ordered in accordance with Medicare regulations or non- Medicare payer requirements, as applicable. In the case of services not specified as inpatient-only, they are appropriately provided as inpatient services in accordance with the 2-midnight benchmark. Estimated LOS (days): 3 3 days is the estimated time the patient will need to remain in the hospital, assuming treatment plan goals are met and no additional complications. Post-Hospital Plan: Not yet determined Problem Qualifiers (1) Surgical wound infection: Qualified Code: T81.4XXA - Postoperative wound infection, initial encounter Michelle Connolly Jul 03, 2017 18:17 Bjorn Castrejon DO Jul 03, 2017 18:39
[2017-07-03] MEDS: SODIUM CHLOR 0.9% 1000 ML INJ 1,000 ML IV SCH (18:28)
[2017-07-03] MEDS: GABAPENTIN 300 MG CAP PO SCH (18:28)
[2017-07-03] MEDS: oxyCODONE/ACETAMINOPHEN 5 MG/325 MG TAB PO PRN (18:37)
[2017-07-03] MEDS: SODIUM CHLORIDE 0.9% FLUSH 10 ML FLUSH IV FLUSH SCH (19:55)
[2017-07-03] MEDS: ZIPRASIDONE HCL 40 MG CAP PO SCH (19:55)
[2017-07-03] MEDS: PIPERACIL-TAZO 4.5 GM PREMIX 100 ML IV SCH (19:56)
[2017-07-03] MEDS: LISINOPRIL 5 MG TAB PO SCH (19:56)
[2017-07-03] MEDS: DOCUSATE SODIUM 50 MG/SENNA 8.6 MG TAB PO SCH (19:57)
[2017-07-03 20:00] VITALS: BP 119/71; PULSE 66; RESP 18; TEMP 99; O2SAT 100
[2017-07-03] MEDS ORDERED: PILL SPLITTER OTHER PRN (21:00)
[2017-07-03] MEDS: traZODone HCL 50 MG TAB PO PRN (23:13)
[2017-07-04] VITALS (8 sets, daily range): BP systolic 91–116; BP diastolic 55–74; PULSE 61–72; RESP 16–18; TEMP 95.6–96.9; O2SAT 96–98
[2017-07-04 01:14] LABS: BLOOD, URINE NEG (NEG); COMMENT (UR) CULTURE INDICATED; CULTURE IF INDICATED CULTURE INDICATED; GLUCOSE,URINE NEG (NEG); KETONE, URINE NEG (NEG); NITRITE,URINE NEG (NEG); URINE COLOR LIGHT-YELLOW (YELLW/STRAW)
[2017-07-04] MEDS: PIPERACIL-TAZO 4.5 GM PREMIX 100 ML IV SCH ×4 (02:57→19:55)
[2017-07-04] MEDS: SODIUM CHLOR 0.9% 1000 ML INJ 1,000 ML IV SCH ×3 (04:00→21:19)
--- NOTE | 2017-07-04 08:02 | HHI.PR ---
Subjective Remarks Mrs. Lucio is a 61-year-old female patient with a known medical history of hypertension, history of CVA, lupus and bipolar disorder who presented to the ED with complaints of possible infection to left ankle surgical wound. Patient sustained a bilateral malleolar fracture last month on June 02. She underwent an open reduction and fixation of the left ankle by Dr. Canas. Per records and patient, upon discharge ankle appeared to be healing with no signs of infection. Patient last saw Dr. Canas in the office last week when the sutures were removed with no apparent issues. She also has had a [facility] nurse coming several times a week to clean and dress the wound appropriately. She states she noticed for the past 3 days that the ankle wound had increased in serous drainage and presented to her PCP with advice to come to ED for further evaluation. Patient denies any other associated symptoms or illness including fever, chills, cough, headache, chest pain, shortness of breath, abdominal pain , nausea, vomiting, diarrhea or dysuria. Denies any recent trauma to area or falls. Does admit to wearing orthopedic boot during ambulation. Currently in the ED patient states the pain to the left ankle is a 2/10 on pain scale with movement, denies pain at rest. Lateral and medical wound pink in color with serous drainage. Warm to palpation. Denies any numbness or tingling to lower left extremity. No edema noted. She did have some pus oozing from this location on her left ankle. 8- patient has been seen with nurse in attendance. Has some pain to the left ankle but this is not new. Labs are pending. Await orthopedics evaluation. Continue on antibiotics with vancomycin and Zosyn Repeat labs in the morning Objective Vitals Vital Signs Date Time Temp Pulse Resp B/P Pulse Ox O2 Delivery O2 Flow Rate FiO2 07/04/17 04:26 96.0 65 18 104/59 97 07/04/17 03:18 66 07/04/17 00:29 96.0 64 16 116/74 98 07/03/17 20:00 99.0 66 18 119/71 100 07/03/17 19:37 18 07/03/17 18:00 95.7 59 17 132/73 98 07/03/17 18:00 95.7 59 17 132/73 98 07/03/17 16:15 57 16 132/68 100 Room Air 07/03/17 13:50 97.5 66 14 117/60 99 I/O 07/03/17 07/03/17 07/03/17 07/04/17 07/04/17 07/04/17 06:59 14:59 22:59 06:59 14:59 22:59 Intake Total 82 ml 828 ml Output Total 700 ml Balance 82 ml 128 ml Intake IV Total 82 ml 828 ml Output Urine Total 700 ml # Voids 3 # Bowel Movements 0 0 Result Diagram: 07/03/17 1425 07/03/17 1425 Other Results Laboratory Tests Test 07/03/17 07/04/17 14:25 00:15 White Blood Count 8.5 TH/MM3 Red Blood Count 4.08 MIL/MM3 Hemoglobin 12.9 GM/DL Hematocrit 36.4 % Mean Corpuscular Volume 89.2 FL Mean Corpuscular Hemoglobin 31.7 PG Mean Corpuscular Hemoglobin 35.5 % Concent Red Cell Distribution Width 14.0 % Platelet Count 409 TH/MM3 Mean Platelet Volume 6.7 FL Neutrophils (%) (Auto) 73.9 % Lymphocytes (%) (Auto) 17.6 % Monocytes (%) (Auto) 7.2 % Eosinophils (%) (Auto) 0.8 % Basophils (%) (Auto) 0.5 % Neutrophils # (Auto) 6.3 TH/MM3 Lymphocytes # (Auto) 1.5 TH/MM3 Monocytes # (Auto) 0.6 TH/MM3 Eosinophils # (Auto) 0.1 TH/MM3 Basophils # (Auto) 0.0 TH/MM3 CBC Comment DIFF FINAL Differential Comment Sodium Level 131 MEQ/L Potassium Level 4.1 MEQ/L Chloride Level 98 MEQ/L Carbon Dioxide Level 24.8 MEQ/L Anion Gap 8 MEQ/L Blood Urea Nitrogen 7 MG/DL Creatinine 0.90 MG/DL Estimat Glomerular Filtration 64 ML/MIN Rate Random Glucose 74 MG/DL Lactic Acid Level 2.1 mmol/L Calcium Level 8.9 MG/DL C-Reactive Protein 0.35 MG/DL Urine Color LIGHT-YELLOW Urine Turbidity CLEAR Urine pH 7.0 Urine Specific [place] 1.010 Urine Protein NEG mg/dL Urine Glucose (UA) NEG mg/dL Urine Ketones NEG mg/dL Urine Occult Blood NEG Urine Nitrite NEG Urine Bilirubin NEG Urine Urobilinogen LESS THAN 2.0 MG/DL Urine Leukocyte Esterase SMALL Urine RBC LESS THAN 1 /hpf Urine WBC 8 /hpf Microscopic Urinalysis Comment CULTURE INDICATED Imaging Last Impressions Chest X-Ray 07/03/17 1645 Signed Impressions: Service Date/Time: Monday, July 03, 2017 16:56 - CONCLUSION: No evidence of acute cardiopulmonary disease. Regino Cheatham MD Ankle X-Ray 07/03/17 1424 Signed Impressions: Service Date/Time: Monday, July 03, 2017 14:38 - CONCLUSION: Surgical changes as above. No convincing radiographic evidence of osteomyelitis. Regino Cheatham MD Objective Remarks GENERAL: Well-nourished, well-developed female patient lying in bed, in no apparent distress. SKIN: No rashes, ecchymoses or lesions.Left ankle surgical wound lateral and medial sides pink in color, serous drainage noted. Dressings in place, clean/dry /intact. HEAD: Atraumatic. Normocephalic.Pupils equal round and reactive. Extraocular motions intact. No injection or drainage. Nose without bleeding. Airway patent. No scleral icterus NECK: Trachea midline. No JVD. Supple. Tongue is midline. no nasal bleeding or discharge mucous membranes are moist and pink CARDIOVASCULAR: Regular rate and rhythm. No murmur appreciated. S1 and S2 no S3 or S4 no heave or thrill or rub or gallop RESPIRATORY: Clear to auscultation. Breath sounds equal bilaterally. No wheezes , rales, or rhonchi. GASTROINTESTINAL: Abdomen soft, non-tender, nondistended. No guarding. No rebound. No rigidity. MUSCULOSKELETAL: Extremities without clubbing, cyanosis, or edema. No joint tenderness, effusion, or edema noted. Left ankle wound with some drainage NEUROLOGICAL: Awake and alert. Cranial nerves II through XII intact. Motor and sensory grossly within normal limits. Five out of 5 muscle strength in all muscle groups. Normal speech. Insight and judgment appear good mood and behavior appropriate PSYCHIATRIC: Appropriate mood and affect; insight and judgment normal. Medications and IVs Inpatient Medications Acetaminophen (Tylenol) 650 mg Q4H PRN PO TEMP > 100.4; Start 07/03/17 at 16:45 Aspirin (Aspirin) 325 mg DAILY PO ; Start 07/04/17 at 09:00 Bisacodyl (Dulcolax Supp) 10 mg DAILY PRN RECTAL SEVERE CONSITIPATION; Start at 16:45 Fluoxetine HCl (PROzac) 40 mg DAILY PO ; Start 07/04/17 at 09:00 Gabapentin (Neurontin) 600 mg TID PO Last administered on 07/03/17 18:28; Start 07/03/17 at 18:00 Lactulose (Lactulose Liq) 30 ml DAILY PRN PO SEVERE CONSITIPATION; Start at 16:45 Lisinopril 2.5 mg 2.5 mg HS PO Last administered on 07/03/17 19:56; Start at 21:00 Magnesium Hydroxide (Milk Of Magnesia Liq) 30 ml Q12H PRN PO MILD - MODERATE CONSTIPATION; Start 07/03/17 at 16:45 Metoclopramide HCl (Reglan Inj) 5 mg Q6H PRN IV PUSH NAUSEA OR VOMITING; Start 07/03/17 at 16:45 Miscellaneous Information SPECIFIC LAB TO BE DRAWN:[facility] TROUGH DATE TO BE DR... ONCE ONCE .XX ; Start 07/06/17 at 15:45; Stop 07/06/17 at 15:46 Miscellaneous 1 ea 1 ea UNSCH PRN OTHER SEE LABEL COMMENTS; Start 07/03/17 at 21 :00 Morphine Sulfate (Morphine Inj) 4 mg Q3H PRN IV BREAKTHROUGH PAIN; Start at 16:45 Naloxone HCl (Narcan Inj) 0.4 mg UNSCH PRN IV SEE LABEL COMMENTS; Start at 16:45 Ondansetron HCl (Zofran Inj) 4 mg Q6H PRN IVP NAUSEA OR VOMITING; Start at 16:45 Ondansetron HCl 4 mg 4 mg ONCE ONCE IV PUSH Last administered on 07/03/17 15: 48; Start 07/03/17 at 15:45; Stop 07/03/17 at 15:46; Status DC Oxycodone/ Acetaminophen (Percocet 5-325 Mg) 2 tab Q12HR PRN PO PAIN 1-10 Last administered on 07/03/17 18:37; Start 07/03/17 at 17:00 Pharmacy Profile Note (Vancomycin Consult Pharmacy) 0 ml @ 0 mls/hr UNSCH OTHER ; Start 07/03/17 at 17:00 Piperacillin Sod/ Tazobactam Sod 100 ml @ 200 mls/hr Q6H IV Last administered on 07/04/17 02:57; Start 07/03/17 at 21:00 Piperacillin Sod/ Tazobactam Sod (Zosyn 3.375 Gm Premix) 50 ml @ 100 mls/hr ONCE ONCE IV Last administered on 07/03/17 14:44; Start 07/03/17 at 14:30; Stop 07/03/17 at 14:59; Status DC Prochlorperazine (Compazine Supp) 25 mg Q12H PRN RECTAL NAUSEA OR VOMITING; Start 07/03/17 at 16:45 Senna/Docusate Sodium (Christina-Colace) 1 tab BID PO Last administered on 07/03/17 19:57; Start 07/03/17 at 21:00 Sennosides (Senokot) 17.2 mg Q12H PRN PO MODERATE - SEVERE CONSTIPATION; Start 07/03/17 at 16:45 Sodium Chloride (NS 1000 ml Inj) 1,000 ml @ 100 mls/hr Q10H IV Last administered on 07/04/17 04:00; Start 07/03/17 at 18:00 Sodium Chloride (NS Flush) 2 ml BID IV FLUSH ; Start 07/03/17 at 21:00 Trazodone HCl (Desyrel) 50 mg HS PRN PO SLEEP Last administered on 07/03/17 23: 13; Start 07/03/17 at 17:00 Vancomycin HCl 1000 mg/Sodium Chloride 250 ml @ 250 mls/hr ONCE ONCE IV Last administered on 07/03/17 15:47; Start 07/03/17 at 14:30; Stop 07/03/17 at 15:29; Status DC Vancomycin HCl/ Sodium Chloride (Vancomycin Inj/ NS 250 ml Inj) 250 ml @ 250 mls/hr Q24H IV ; Start 07/04/17 at 16:00 Ziprasidone (Geodon) 40 mg BID PO Last administered on 07/03/17 19:55; Start at 21:00 Zolpidem Tartrate (Ambien) 5 mg HS PRN PO INSOMNIA; Start 07/03/17 at 17:00 Urinary Catheter: No Vascular Central Line Catheter: No A/P Problem List: (1) Surgical wound infection ICD Code: T81.4XXA Status: Acute (2) Seizure ICD Code: R56.9 Status: Acute (3) Bipolar 1 disorder ICD Code: F31.9 Status: Acute (4) Hypertension ICD Code: I10 Status: Acute (5) CVA (cerebral vascular accident) ICD Code: I63.9 Status: Acute Assessment and Plan Mrs. Lucio is a 61-year-old female patient with a known medical history of hypertension, history of CVA, lupus and bipolar disorder who presented to the ED with complaints of possible infection to left ankle surgical wound. Patient sustained a bilateral malleolar fracture last month on June 02. She underwent an open reduction and fixation of the left ankle by Dr. Canas. She states she noticed for the past 3 days that the ankle wound had increased in serous drainage and presented to here PCP with advice to come to ED for further evaluation. Left ankle surgical wound infection: Will admit to inpatient. No leukocytosis. Afebrile. CRP elevated, 0.35. Lactic acid 2.1. Zosyn IV and Vanco IV x 1 given in ED. Ankle x-ray reviewed showing normal surgical changes, no osteomyelitis noted. CXR reviewed showing no signs of acute cardiopulmonary disease. Consult has been placed to Dr. Hackett. Wound culture ordered and pending. Blood cultures ordered and pending. UA ordered and pending. Follow. Start Zosyn 4.5 gram IV q6hr and Vancomycin IV. Control pain, Oxycodone PO PRN per pain scale and Morphine IV PRN per pain scale. NS at 100ml/hr. Hyponatremia suspect secondary to infection: Will continue work up and management as above. Will hydrate. Repeat BMP in am. Follow. Hypertension, chronic: Continue home Lisinopril. Controlled at this time. Monitor. Depression and bipolar history: stable at this time. Will continue home Prozac, Geodon and Trazodone. DVT prophylaxis: SCDs. 8-6 we await orthopedic evaluation. No new complaints Continue current treatment Discontinue Accu-Cheks and diabetic diet and switched to cardiac diet Problem Qualifiers (1) Surgical wound infection: Qualified Code: T81.4XXA - Postoperative wound infection, initial encounter Bjorn Castrejon DO Jul 04, 2017 08:02
[2017-07-04] MEDS: oxyCODONE/ACETAMINOPHEN 5 MG/325 MG TAB PO PRN ×2 (08:11→20:34)
[2017-07-04] MEDS: DOCUSATE SODIUM 50 MG/SENNA 8.6 MG TAB PO SCH ×2 (08:11→19:54)
[2017-07-04] MEDS: GABAPENTIN 300 MG CAP PO SCH ×3 (08:11→17:42)
[2017-07-04] MEDS: ZIPRASIDONE HCL 40 MG CAP PO SCH ×2 (08:12→19:54)
[2017-07-04] MEDS: ASPIRIN 325 MG TAB PO SCH (08:12)
[2017-07-04] MEDS: SODIUM CHLORIDE 0.9% FLUSH 10 ML FLUSH IV FLUSH SCH ×2 (08:12→19:55)
[2017-07-04] MEDS: FLUoxetine HCL 20 MG CAP PO SCH (08:12)
[2017-07-04 11:58] LABS: AUTOMATED NEUTROPHIL # 2.9 TH/MM3 (1.8-7.7); BASOPHIL % 0.8 % (0.0-2.0); EOSINOPHIL # 0.2 TH/MM3 (0-0.4); EOSINOPHIL % 3.6 % (0.0-4.0); HEMATOCRIT 38.9 % (35.0-46.0); HEMO FLAGS DIFF FINAL; MEAN CELL VOLUME 92.5 FL (80.0-100.0); MEAN CORPUSCULAR HEMOGLOBIN 30.4 PG (27.0-34.0); MEAN CORPUSCULAR HGB CONC 32.9 % (32.0-36.0); MONO % 10.8 % (0.0-8.0); NEUT % 62.8 % (16.0-70.0); PLATELET COUNT 438 TH/MM3 (150-450); RED BLOOD COUNT 4.21 MIL/MM3 (4.00-5.30); RED CELL DISTRIBUTION WIDTH 14.2 % (11.6-17.2); WHITE BLOOD COUNT 4.6 TH/MM3 (4.0-11.0)
[2017-07-04 12:11] LABS: PROTHROMBIN TIME - PATIENT 10.7 SEC (9.8-11.6)
[2017-07-04 12:21] LABS: ANION GAP 8 MEQ/L (5-15); BLOOD UREA NITROGEN 9 MG/DL (7-18); CHLORIDE 105 MEQ/L (98-107); GLOMERULAR FILTRATION RATE 53 ML/MIN (>89); MAGNESIUM 1.9 MG/DL (1.5-2.5); POTASSIUM 3.9 MEQ/L (3.5-5.1); SODIUM (NA) 140 MEQ/L (136-145)
[2017-07-04 12:22] LABS: AST (GOT) 16 U/L (15-37)
[2017-07-04 12:31] LABS: ALKALINE PHOSPHATASE 66 U/L (45-117); ALT (GPT) 12 U/L (10-53); FREE T4 1.18 NG/DL (0.76-1.46); TOTAL BILIRUBIN ADULT 0.3 MG/DL (0.2-1.0)
[2017-07-04] MEDS: VANCOMYCIN 1,000 MG/NS 250 ML IV SCH ×2 (13:11)
[2017-07-04 13:23] LABS: HEMOGLOBIN A1a 1.3 %; HEMOGLOBIN A1b 1.5 %; HEMOGLOBIN Ao 85.8 %; HEMOGLOBIN LA1C 1.9 %; HEMOGLOBIN P3 3.5 %
--- NOTE | 2017-07-04 17:14 | EKG ---
Date Performed: 07/03/2017 Time Performed: 17:17:06 PTAGE: 61 years EKG: SINUS BRADYCARDIA POSSIBLE LEFT ATRIAL ENLARGEMENT BORDERLINE ECG Since PREVIOUS TRACING , no significant change noted PREVIOUS TRACIN06/12/2017 11.00 DOCTOR: Jamie Durbin Interpretating Date/Time 07/04/2017 17:14:12
[2017-07-04] MEDS: LISINOPRIL 5 MG TAB PO SCH (19:54)
[2017-07-04] MEDS: traZODone HCL 50 MG TAB PO PRN (21:19)
[2017-07-05] VITALS (7 sets, daily range): BP systolic 102–156; BP diastolic 55–87; PULSE 64–78; RESP 16–20; TEMP 96.7–97.9; O2SAT 92–100
[2017-07-05] MEDS: PIPERACIL-TAZO 4.5 GM PREMIX 100 ML IV SCH ×4 (03:29→21:40)
[2017-07-05] MEDS: VANCOMYCIN 1,000 MG/NS 250 ML IV SCH ×2 (05:13)
[2017-07-05 07:17] LABS: AUTOMATED NEUTROPHIL # 3.2 TH/MM3 (1.8-7.7); BASOPHIL # 0.1 TH/MM3 (0-0.2); EOSINOPHIL # 0.2 TH/MM3 (0-0.4); EOSINOPHIL % 3.9 % (0.0-4.0); HEMATOCRIT 36.2 % (35.0-46.0); HEMO FLAGS DIFF FINAL; LYMPH % 32.7 % (9.0-44.0); MEAN CELL VOLUME 90.9 FL (80.0-100.0); MEAN CORPUSCULAR HEMOGLOBIN 30.4 PG (27.0-34.0); MEAN CORPUSCULAR HGB CONC 33.5 % (32.0-36.0); MONO % 9.5 % (0.0-8.0); NEUT % 52.9 % (16.0-70.0); PLATELET COUNT 382 TH/MM3 (150-450); RED BLOOD COUNT 3.99 MIL/MM3 (4.00-5.30); RED CELL DISTRIBUTION WIDTH 14.2 % (11.6-17.2); WHITE BLOOD COUNT 6.1 TH/MM3 (4.0-11.0)
[2017-07-05 07:49] LABS: ALT (GPT) 12 U/L (10-53); ANION GAP 7 MEQ/L (5-15); AST (GOT) 11 U/L (15-37); BICARBONATE 25.5 MEQ/L (21.0-32.0); BLOOD UREA NITROGEN 9 MG/DL (7-18); CHLORIDE 110 MEQ/L (98-107); GLOMERULAR FILTRATION RATE 64 ML/MIN (>89); MAGNESIUM 1.9 MG/DL (1.5-2.5); POTASSIUM 3.5 MEQ/L (3.5-5.1); SODIUM (NA) 142 MEQ/L (136-145)
[2017-07-05 07:51] LABS: ALKALINE PHOSPHATASE 57 U/L (45-117); TOTAL BILIRUBIN ADULT 0.4 MG/DL (0.2-1.0)
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
[2017-07-05] MEDS: GABAPENTIN 300 MG CAP PO SCH ×3 (08:45→18:08)
[2017-07-05] MEDS: FLUoxetine HCL 20 MG CAP PO SCH (08:45)
[2017-07-05] MEDS: ZIPRASIDONE HCL 40 MG CAP PO SCH ×2 (08:45→21:38)
[2017-07-05] MEDS: ASPIRIN 325 MG TAB PO SCH (08:46)
[2017-07-05] MEDS: SODIUM CHLORIDE 0.9% FLUSH 10 ML FLUSH IV FLUSH SCH ×2 (08:46→21:00)
[2017-07-05] MEDS: DOCUSATE SODIUM 50 MG/SENNA 8.6 MG TAB PO SCH ×2 (08:46→21:00)
[2017-07-05] MEDS: oxyCODONE/ACETAMINOPHEN 5 MG/325 MG TAB PO PRN ×2 (08:46→21:39)
[2017-07-05] MEDS: SODIUM CHLOR 0.9% 1000 ML INJ 1,000 ML IV SCH ×2 (08:46→21:36)
--- NOTE | 2017-07-05 09:14 | HHI.PR ---
Subjective Remarks Mrs. Lucio is a 61-year-old female patient with a known medical history of hypertension, history of CVA, lupus and bipolar disorder who presented to the ED with complaints of possible infection to left ankle surgical wound. Patient sustained a bilateral malleolar fracture last month on June 02. She underwent an open reduction and fixation of the left ankle by Dr. Canas. Per records and patient, upon discharge ankle appeared to be healing with no signs of infection. Patient last saw Dr. Canas in the office last week when the sutures were removed with no apparent issues. She also has had a [facility] nurse coming several times a week to clean and dress the wound appropriately. She states she noticed for the past 3 days that the ankle wound had increased in serous drainage and presented to her PCP with advice to come to ED for further evaluation. Patient denies any other associated symptoms or illness including fever, chills, cough, headache, chest pain, shortness of breath, abdominal pain , nausea, vomiting, diarrhea or dysuria. Denies any recent trauma to area or falls. Does admit to wearing orthopedic boot during ambulation. Currently in the ED patient states the pain to the left ankle is a 2/10 on pain scale with movement, denies pain at rest. Lateral and medical wound pink in color with serous drainage. Warm to palpation. Denies any numbness or tingling to lower left extremity. No edema noted. She did have some pus oozing from this location on her left ankle. 8-6 patient has been seen with nurse in attendance. Has some pain to the left ankle but this is not new. Labs are pending. Await orthopedics evaluation. Continue on antibiotics with vancomycin and Zosyn Repeat labs in the morning 8-7 the patient has been seen by orthopedic surgery They removed her sutures clean ankle wounds Wound cultures are growing staph aureus await sensitivities Discussed with patient and RN Continue current medications We'll de-escalate once sensitivities are back A.m. labs Objective Vitals Vital Signs Date Time Temp Pulse Resp B/P Pulse Ox O2 Delivery O2 Flow Rate FiO2 07/05/17 08:00 97.1 64 18 153/74 100 07/05/17 04:00 96.7 67 20 147/72 98 07/05/17 00:00 96.8 67 19 126/87 97 07/04/17 21:52 97 07/04/17 21:34 18 07/04/17 20:00 96.9 69 17 104/62 97 07/04/17 20:00 71 07/04/17 16:00 96.0 69 17 93/55 97 07/04/17 12:00 95.6 72 16 91/62 97 I/O 07/04/17 07/04/17 07/04/17 07/05/17 07/05/17 07/05/17 07:00 15:00 23:00 07:00 15:00 23:00 Intake Total 828 ml 1961 ml 799 ml 1177 ml Output Total 700 ml 1000 ml 800 ml Balance 128 ml 961 ml -1 ml 1177 ml Intake Oral 716 ml 480 ml 240 ml IV Total 828 ml 1245 ml 319 ml 937 ml Output Urine Total 700 ml 1000 ml 800 ml # Voids 2 # Bowel Movements 0 0 Result Diagram: 07/05/17 0638 07/05/17 0638 Other Results Laboratory Tests Test 07/04/17 07/05/17 10:16 06:38 White Blood Count 4.6 TH/MM3 6.1 TH/MM3 Red Blood Count 4.21 MIL/MM3 3.99 MIL/MM3 Hemoglobin 12.8 GM/DL 12.1 GM/DL Hematocrit 38.9 % 36.2 % Mean Corpuscular Volume 92.5 FL 90.9 FL Mean Corpuscular Hemoglobin 30.4 PG 30.4 PG Mean Corpuscular Hemoglobin 32.9 % 33.5 % Concent Red Cell Distribution Width 14.2 % 14.2 % Platelet Count 438 TH/MM3 382 TH/MM3 Mean Platelet Volume 6.6 FL 6.8 FL Neutrophils (%) (Auto) 62.8 % 52.9 % Lymphocytes (%) (Auto) 22.0 % 32.7 % Monocytes (%) (Auto) 10.8 % 9.5 % Eosinophils (%) (Auto) 3.6 % 3.9 % Basophils (%) (Auto) 0.8 % 1.0 % Neutrophils # (Auto) 2.9 TH/MM3 3.2 TH/MM3 Lymphocytes # (Auto) 1.0 TH/MM3 2.0 TH/MM3 Monocytes # (Auto) 0.5 TH/MM3 0.6 TH/MM3 Eosinophils # (Auto) 0.2 TH/MM3 0.2 TH/MM3 Basophils # (Auto) 0.0 TH/MM3 0.1 TH/MM3 CBC Comment DIFF FINAL DIFF FINAL Differential Comment Prothrombin Time 10.7 SEC Prothromb Time International 1.0 RATIO Ratio Sodium Level 140 MEQ/L 142 MEQ/L Potassium Level 3.9 MEQ/L 3.5 MEQ/L Chloride Level 105 MEQ/L 110 MEQ/L Carbon Dioxide Level 27.0 MEQ/L 25.5 MEQ/L Anion Gap 8 MEQ/L 7 MEQ/L Blood Urea Nitrogen 9 MG/DL 9 MG/DL Creatinine 1.06 MG/DL 0.90 MG/DL Estimat Glomerular Filtration 53 ML/MIN 64 ML/MIN Rate Random Glucose 104 MG/DL 77 MG/DL Hemoglobin A1c 5.3 % Calcium Level 8.5 MG/DL 8.7 MG/DL Phosphorus Level 4.6 MG/DL 3.7 MG/DL Magnesium Level 1.9 MG/DL 1.9 MG/DL Total Bilirubin 0.3 MG/DL 0.4 MG/DL Aspartate Amino Transf 16 U/L 11 U/L (AST/SGOT) Alanine Aminotransferase 12 U/L 12 U/L (ALT/SGPT) Alkaline Phosphatase 66 U/L 57 U/L Total Protein 6.3 GM/DL 6.2 GM/DL Albumin 3.2 GM/DL 3.0 GM/DL Free Thyroxine 1.18 NG/DL Thyroid Stimulating Hormone 2.610 uIU/ML 3rd Gen Imaging Last Impressions Chest X-Ray 07/03/17 1645 Signed Impressions: Service Date/Time: Monday, July 03, 2017 16:56 - CONCLUSION: No evidence of acute cardiopulmonary disease. Regino Cheatham MD Ankle X-Ray 07/03/17 1424 Signed Impressions: Service Date/Time: Monday, July 03, 2017 14:38 - CONCLUSION: Surgical changes as above. No convincing radiographic evidence of osteomyelitis. Regino Cheatham MD Objective Remarks GENERAL: Well-nourished, well-developed female patient lying in bed, in no apparent distress. SKIN: No rashes, ecchymoses or lesions.Left ankle surgical wound lateral and medial sides pink in color, serous drainage noted. Dressings in place, clean/dry /intact. HEAD: Atraumatic. Normocephalic.Pupils equal round and reactive. Extraocular motions intact. No injection or drainage. Nose without bleeding. Airway patent. No scleral icterus NECK: Trachea midline. No JVD. Supple. Tongue is midline. no nasal bleeding or discharge mucous membranes are moist and pink CARDIOVASCULAR: Regular rate and rhythm. No murmur appreciated. S1 and S2 no S3 or S4 no heave or thrill or rub or gallop RESPIRATORY: Clear to auscultation. Breath sounds equal bilaterally. No wheezes , rales, or rhonchi. GASTROINTESTINAL: Abdomen soft, non-tender, nondistended. No guarding. No rebound. No rigidity. MUSCULOSKELETAL: Extremities without clubbing, cyanosis, or edema. No joint tenderness, effusion, or edema noted. Left ankle wound with some drainage NEUROLOGICAL: Awake and alert. Cranial nerves II through XII intact. Motor and sensory grossly within normal limits. Five out of 5 muscle strength in all muscle groups. Normal speech. Insight and judgment appear good mood and behavior appropriate PSYCHIATRIC: Appropriate mood and affect; insight and judgment normal. Procedures Has had sutures removed from the wound by orthopedic surgery July 05 Medications and IVs Current Medications Vancomycin HCl 1000 mg/Sodium Chloride 250 ml @ 250 mls/hr ONCE ONCE IV Last administered on 07/03/17 15:47; Start 07/03/17 at 14:30; Stop 07/03/17 at 15:29; Status DC Piperacillin Sod/ Tazobactam Sod (Zosyn 3.375 Gm Premix) 50 ml @ 100 mls/hr ONCE ONCE IV Last administered on 07/03/17 14:44; Start 07/03/17 at 14:30; Stop 07/03/17 at 14:59; Status DC Morphine Sulfate (Morphine Inj) 4 mg ONCE ONCE IV PUSH Last administered on 15:48; Start 07/03/17 at 15:45; Stop 07/03/17 at 15:46; Status DC Ondansetron HCl 4 mg 4 mg ONCE ONCE IV PUSH Last administered on 07/03/17 15: 48; Start 07/03/17 at 15:45; Stop 07/03/17 at 15:46; Status DC Sodium Chloride (NS 1000 ml Inj) 1,000 ml @ 100 mls/hr Q10H IV Last administered on 07/04/17 21:19; Start 07/03/17 at 18:00 Sodium Chloride (NS Flush) 2 ml UNSCH PRN IV FLUSH FLUSH AFTER USING IV ACCESS ; Start 07/03/17 at 16:45 Sodium Chloride (NS Flush) 2 ml BID IV FLUSH ; Start 07/03/17 at 21:00 Acetaminophen (Tylenol) 650 mg Q4H PRN PO TEMP > 100.4; Start 07/03/17 at 16:45 Ondansetron HCl (Zofran Inj) 4 mg Q6H PRN IVP NAUSEA OR VOMITING; Start at 16:45 Metoclopramide HCl (Reglan Inj) 5 mg Q6H PRN IV PUSH NAUSEA OR VOMITING; Start 07/03/17 at 16:45 Prochlorperazine (Compazine Supp) 25 mg Q12H PRN RECTAL NAUSEA OR VOMITING; Start 07/03/17 at 16:45 Morphine Sulfate (Morphine Inj) 2 mg Q3H PRN IV Pain 3-5; if unable to take PO ; Start 07/03/17 at 16:45 Morphine Sulfate (Morphine Inj) 4 mg Q3H PRN IV Pain 6-10;if unable to take PO ; Start 07/03/17 at 16:45 Morphine Sulfate (Morphine Inj) 4 mg Q1H PRN IV PAIN SCALE 7-10 (INTRACTABLE); Start 07/03/17 at 16:45 Morphine Sulfate (Morphine Inj) 4 mg Q3H PRN IV BREAKTHROUGH PAIN; Start at 16:45 Naloxone HCl (Narcan Inj) 0.4 mg UNSCH PRN IV SEE LABEL COMMENTS; Start at 16:45 Senna/Docusate Sodium (Christina-Colace) 1 tab BID PO Last administered on 07/04/17t 19:54; Start 07/03/17 at 21:00 Magnesium Hydroxide (Milk Of Magnesia Liq) 30 ml Q12H PRN PO MILD - MODERATE CONSTIPATION; Start 07/03/17 at 16:45 Sennosides (Senokot) 17.2 mg Q12H PRN PO MODERATE - SEVERE CONSTIPATION; Start 07/03/17 at 16:45 Bisacodyl (Dulcolax Supp) 10 mg DAILY PRN RECTAL SEVERE CONSITIPATION; Start at 16:45 Lactulose (Lactulose Liq) 30 ml DAILY PRN PO SEVERE CONSITIPATION; Start at 16:45 Aspirin (Aspirin) 325 mg DAILY PO Last administered on 07/05/17 08:46; Start at 09:00 Gabapentin (Neurontin) 600 mg TID PO Last administered on 07/05/17 08:45; Start 07/03/17 at 18:00 Oxycodone/ Acetaminophen (Percocet 5-325 Mg) 2 tab Q12HR PRN PO PAIN 1-10 Last administered on 07/05/17 08:46; Start 07/03/17 at 17:00 Trazodone HCl (Desyrel) 50 mg HS PRN PO SLEEP Last administered on 07/04/17 21: 19; Start 07/03/17 at 17:00 Ziprasidone (Geodon) 40 mg BID PO Last administered on 07/05/17 08:45; Start at 21:00 Zolpidem Tartrate (Ambien) 5 mg HS PRN PO INSOMNIA; Start 07/03/17 at 17:00 Fluoxetine HCl (PROzac) 40 mg DAILY PO Last administered on 07/05/17 08:45; Start 07/04/17 at 09:00 Lisinopril 2.5 mg 2.5 mg HS PO Last administered on 07/04/17 19:54; Start at 21:00 Piperacillin Sod/ Tazobactam Sod 100 ml @ 200 mls/hr Q6H IV Last administered on 07/05/17 08:46; Start 07/03/17 at 21:00 Pharmacy Profile Note (Vancomycin Consult Pharmacy) 0 ml @ 0 mls/hr UNSCH OTHER ; Start 07/03/17 at 17:00 Miscellaneous 1 ea 1 ea UNSCH PRN OTHER SEE LABEL COMMENTS; Start 07/03/17 at 21 :00 Vancomycin HCl/ Sodium Chloride (Vancomycin Inj/ NS 250 ml Inj) 250 ml @ 250 mls/hr Q18H IV Last administered on 07/05/17 05:13; Start 07/04/17 at 12:00 Miscellaneous Information SPECIFIC LAB TO BE DRAWN:VANCO TROUGH DATE TO BE DRKari. ONCE ONCE .XX ; Start 07/05/17 at 23:45; Stop 07/05/17 at 23:46 Vascular Central Line Catheter: No A/P Problem List: (1) Surgical wound infection ICD Code: T81.4XXA Status: Acute (2) Seizure ICD Code: R56.9 Status: Acute (3) Bipolar 1 disorder ICD Code: F31.9 Status: Acute (4) Hypertension ICD Code: I10 Status: Acute (5) CVA (cerebral vascular accident) ICD Code: I63.9 Status: Acute Assessment and Plan Mrs. Lucio is a 61-year-old female patient with a known medical history of hypertension, history of CVA, lupus and bipolar disorder who presented to the ED with complaints of possible infection to left ankle surgical wound. Patient sustained a bilateral malleolar fracture last month on June 02. She underwent an open reduction and fixation of the left ankle by Dr. Canas. She states she noticed for the past 3 days that the ankle wound had increased in serous drainage and presented to here PCP with advice to come to ED for further evaluation. Left ankle surgical wound infection: Will admit to inpatient. No leukocytosis. Afebrile. CRP elevated, 0.35. Lactic acid 2.1. Zosyn IV and Vanco IV x 1 given in ED. Ankle x-ray reviewed showing normal surgical changes, no osteomyelitis noted. CXR reviewed showing no signs of acute cardiopulmonary disease. Consult has been placed to Dr. Hackett. Wound culture ordered and pending. Blood cultures ordered and pending. UA ordered and pending. Follow. Start Zosyn 4.5 gram IV q6hr and Vancomycin IV. Control pain, Oxycodone PO PRN per pain scale and Morphine IV PRN per pain scale. NS at 100ml/hr. Has been seen by orthopedic surgery. Has had her sutures taken out today July 05 Wound grew staph aureus. Await sensitivities continue on current treatments until sensitivities are known Hyponatremia suspect secondary to infection: Will continue work up and management as above. Will hydrate. Repeat BMP in am. Follow. Hypertension, chronic: Continue home Lisinopril. Controlled at this time. Monitor. Depression and bipolar history: stable at this time. Will continue home Prozac, Geodon and Trazodone. DVT prophylaxis: SCDs. 8-6 we await orthopedic evaluation. No new complaints Continue current treatment Discontinue Accu-Cheks and diabetic diet and switched to cardiac diet 8-7 patient has been seen by orthopedic surgery Sutures removed today Await sensitivities we will continue vancomycin and Zosyn Problem Qualifiers (1) Surgical wound infection: Qualified Code: T81.4XXA - Postoperative wound infection, initial encounter Bjorn Castrejon DO Jul 05, 2017 09:14
[2017-07-05] MEDS: LISINOPRIL 5 MG TAB PO SCH (21:39)
[2017-07-05] MEDS ORDERED: PHARMACY ORDERED LAB ONE (23:45)
[2017-07-06] VITALS: BP 148/76; PULSE 64; RESP 18; TEMP 97.2; O2SAT 98
[2017-07-06] MEDS: VANCOMYCIN 1,000 MG/NS 250 ML IV SCH ×2 (00:24)
[2017-07-06 01:06] LABS: ANION GAP 8 MEQ/L (5-15); AST (GOT) 14 U/L (15-37); BICARBONATE 24.4 MEQ/L (21.0-32.0); BLOOD UREA NITROGEN 9 MG/DL (7-18); CHLORIDE 107 MEQ/L (98-107); GLOMERULAR FILTRATION RATE 66 ML/MIN (>89); MAGNESIUM 1.8 MG/DL (1.5-2.5); POTASSIUM 3.7 MEQ/L (3.5-5.1); SODIUM (NA) 139 MEQ/L (136-145)
[2017-07-06 01:07] LABS: ALT (GPT) 11 U/L (10-53)
[2017-07-06 01:09] LABS: ALKALINE PHOSPHATASE 53 U/L (45-117); TOTAL BILIRUBIN ADULT 0.4 MG/DL (0.2-1.0); VANCOMYCIN TROUGH 10.7 MCG/ML (5.0-10.0)
[2017-07-06 04:00] VITALS: BP 159/77; PULSE 70; RESP 18; TEMP 97.9; O2SAT 97
[2017-07-06] MEDS: PIPERACIL-TAZO 4.5 GM PREMIX 100 ML IV SCH ×2 (04:08→09:37)
[2017-07-06 04:40] LABS: AUTOMATED NEUTROPHIL # 4.4 TH/MM3 (1.8-7.7); BASOPHIL # 0.1 TH/MM3 (0-0.2); BASOPHIL % 1.1 % (0.0-2.0); EOSINOPHIL # 0.3 TH/MM3 (0-0.4); EOSINOPHIL % 3.4 % (0.0-4.0); HEMATOCRIT 33.5 % (35.0-46.0); HEMO FLAGS DIFF FINAL; LYMPH % 29.9 % (9.0-44.0); LYMPHOCYTE # 2.3 TH/MM3 (1.0-4.8); MEAN CELL VOLUME 89.1 FL (80.0-100.0); MEAN CORPUSCULAR HEMOGLOBIN 30.4 PG (27.0-34.0); MEAN CORPUSCULAR HGB CONC 34.1 % (32.0-36.0); NEUT % 56.6 % (16.0-70.0); PLATELET COUNT 360 TH/MM3 (150-450); RED BLOOD COUNT 3.76 MIL/MM3 (4.00-5.30); RED CELL DISTRIBUTION WIDTH 14.2 % (11.6-17.2); WHITE BLOOD COUNT 7.8 TH/MM3 (4.0-11.0)
[2017-07-06 08:00] VITALS: BP 154/83; PULSE 67; RESP 16; TEMP 96.8; O2SAT 97
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
[2017-07-06] MEDS: DOCUSATE SODIUM 50 MG/SENNA 8.6 MG TAB PO SCH ×2 (09:00→09:38)
[2017-07-06 09:31] LABS: C. DIFF EPI 027 PRESUMPTIVE NEGATIVE (NEGATIVE); C. DIFF TOXIN PCR NEGATIVE (NEGATIVE)
[2017-07-06] MEDS: FLUoxetine HCL 20 MG CAP PO SCH (09:38)
[2017-07-06] MEDS: GABAPENTIN 300 MG CAP PO SCH (09:38)
[2017-07-06] MEDS: ASPIRIN 325 MG TAB PO SCH (09:38)
[2017-07-06] MEDS: ZIPRASIDONE HCL 40 MG CAP PO SCH (09:38)
[2017-07-06] MEDS: oxyCODONE/ACETAMINOPHEN 5 MG/325 MG TAB PO PRN (10:16)
[2017-07-06] MEDS ORDERED: CEPH-460 PO (11:03)
--- NOTE | 2017-07-06 11:05 | HHI.FF ---
Face to Face Verification Diagnosis: (1) Displaced bimalleolar fracture of left ankle (2) CVA (cerebral vascular accident) (3) DJD (degenerative joint disease) of knee (4) Surgical wound infection Physical Therapy Order: Evaluate and Treat Occupational Therapy Order: Evaluate and Treat Home Health Nursing Order: Wound care and dressing changes Nursing assessment with vital signs I have seen patient Rocio Lucio on 07/06/17. My clinical findings support the need for the requested home health care services because: Deconditioned w/ increased weakness I certify that my clinical findings support that this patient is homebound because: Unsafe to leave home unassisted Álvaro Benavidez MD Jul 06, 2017 11:05
[2017-07-06] MEDS ORDERED: VANCOMYCIN 1,000 MG/NS 250 ML IV SCH ×2 (12:00)
[2017-07-07] MEDS ORDERED: PHARMACY ORDERED LAB ONE (11:45)
== END 2017-07-06 13:40 | disposition home health service (06) | DRG 863 ==
LOC: NEPC 13:48 → NEDA 16:46 → OBSVTOIN 16:50 → N07B 17:56
PROVIDERS: ADMIT Internal Medicine; ATTEND Internal Medicine
DX: T81.4XXA Infection following a procedure, initial encounter (principal); E87.1 Hypo-osmolality and hyponatremia; R56.9 Unspecified convulsions; I10 Essential (primary) hypertension; M17.0 Bilateral primary osteoarthritis of knee; F31.9 Bipolar disorder, unspecified; F17.210 Nicotine dependence, cigarettes, uncomplicated; Z86.73 Personal history of transient ischemic attack (TIA), and cerebral infarction without residual deficits; Z96.652 Presence of left artificial knee joint
CPT/HCPCS: 71010; 73610; 80048; 80053; 80202; 81001; 82948; 83036; 83605; 83735; 84100; 84439; 84443; 85025; 85610; 86140; 86403; 87040; 87070; 87086; 87147; 87186; 87493; 93005; 96365; 96366; 96375; J2270; J2405; J2543; J3370; J7030; J7050

== ENCOUNTER 2018-02-27 00:19 | Emergency (ER) | payer MEDICARE, OTHER ==
[~2018-02-27] VITALS: Ht 157.5 cm; Wt 45.0 kg
[~2018-02-27 00:19] MED LIST changes: -ASPI325T PO; -CRUTMIS25; -HYDR-3516 PO; -LISI2.5T3 PO; +MELO7.5T27 PO; -OXYC1TAB63 PO; +TIZA4TAB PO; -WALKER WHEELS/F1 MIS; -XARE10TA PO; -ZOLP5TAB3 PO
[2018-02-27 00:36] VITALS: BP 141/82; PULSE 82; RESP 18; TEMP 97.6; O2SAT 100
[2018-02-27] MEDS ORDERED: LIDOCAINE HCL 1% PF 30 ML VIAL ONE (02:44)
[2018-02-27] MEDS ORDERED: LIDOCAINE HCL 1% 50 ML VIAL INFIL ONE (02:45)
--- NOTE | 2018-02-27 03:01 | PD ---
HPI Chief Complaint: Fall Time Seen by Provider: 02:21 Travel History International Travel<30 days: No Contact w/Intl Traveler<30days: No Traveled to known affect area: No History of Present Illness HPI Is a 62-year-old woman who presents to the emergency department complaining of fall. She reports she was walking the dog when she tripped over the dog and fell forward and struck her face. She complains of neck pain had pain and face pain. She otherwise looks well. No other complaints. No loss of consciousness. No syncope. History Past Medical History Medical History: Denies Significant Hx Tetanus Vaccination: < 5 Years Influenza Vaccination: No Social History Alcohol Use: Yes (OCC) Tobacco Use: Yes (3 CIGS/DAY) Allergies-Medications (Allergen,Severity, Reaction): Coded Allergies: ketorolac (Unverified Allergy, Unknown, Rash, 02/27/18) Reported Meds & Prescriptions Reported Meds & Active Scripts Active Tizanidine (Tizanidine HCl) 4 Mg Tab 4 Mg PO TID Reported Meloxicam 7.5 Mg Tab 7.5 Tab PO Trazodone (Trazodone HCl) 50 Mg Tab 50 Mg PO HS PRN Prozac (Fluoxetine HCl) 40 Mg Cap 40 Mg PO DAILY Ziprasidone 40 Mg Cap 40 Mg PO BID Gabapentin 600 Mg Tab 600 Mg PO TID Review of Systems Except as stated in HPI: all other systems reviewed are Neg Physical Exam Narrative GENERAL: Well-appearing 8-year-old woman, no acute distress. SKIN: Focused skin assessment warm/dry. HEAD: Atraumatic. Normocephalic. EYES: Pupils equal and round. No scleral icterus. No injection or drainage. ENT: No nasal bleeding or discharge. Mucous membranes pink and moist. Laceration over the right brow. Tenderness over the right brow and on the right zygoma. NECK: Trachea midline. Tenderness in the midline. CARDIOVASCULAR: Regular rate and rhythm. No murmur appreciated. RESPIRATORY: No accessory muscle use. Clear to auscultation. Breath sounds equal bilaterally. GASTROINTESTINAL: Abdomen soft, non-tender, nondistended. Hepatic and splenic margins not palpable. MUSCULOSKELETAL: No obvious deformities. No clubbing. No cyanosis. No edema. NEUROLOGICAL: Awake and alert. No obvious cranial nerve deficits. Motor grossly within normal limits. Normal speech. PSYCHIATRIC: Appropriate mood and affect; insight and judgment normal. Data Data Last Documented VS Vital Signs Date Time Temp Pulse Resp B/P (MAP) Pulse Ox O2 Delivery O2 Flow Rate FiO2 02/27/18 00:36 97.6 82 18 141/82 (101) [address] Brain W/O Iv Contrast(Rout) (02/27/18 ) Ct Cerv Spine W/O Contrast (02/27/18 ) Ct Facial Bones W/O Iv Cont (02/27/18 ) Lidocaine 1% Inj (50 Ml) (Xylocaine 1% I (02/27/18 02:45) Lidocaine Pf 1% Inj (Xylocaine-Mpf 1% In (02/27/18 02:44) MDM Medical Decision Making Medical Screen Exam Complete: Yes Emergency Medical Condition: Yes Interpretation(s) Head CT: Negative chronic left sphenoid sinus disease. C-spine CT: Moderate to advanced degenerative disc disease in the lower cervical spine with reversal of the normal cervical lordosis. Mild canal stenosis at C5-6-7 with bilateral neuroforaminal encroachment. No acute fracture. CT face: No acute bony abnormality. Differential Diagnosis Head injury, facial laceration, neck injury, other Narrative Course Medical decision making INITIAL: Is a 8-year-old woman presents to the emergency department complaining of trip and fall, head and neck pain, facial laceration. States she is up-to- date on her tetanus. Diagnosis Primary Impression: Head injury Additional Impression: Facial laceration Patient Instructions: General Instructions Additional Instructions: Keep wound clean and dry. Do not wet for 24 hours. After 24 hours and clean the wound gently with soap and water. Gently clean wound twice daily with soap and water. Do not soak wound. No swimming, hot tubs, or allowing wound to get too wet. Apply antibiotic ointment to wound twice daily. Return to the emergency department for any worsening pain, swelling, redness, significant bleeding, or any other new or worsening symptoms. Follow-up with your primary doctor or return to the emergency department 5 days for suture removal. Disposition: 01 DISCHARGE HOME Condition: Stable Maxwell Villareal MD Feb 27, 2018 03:01
--- NOTE | 2018-02-27 03:23 | RADRPT ---
EXAM DATE/TIME: 02/27/2018 02:50 [facility] COMPARISON: No previous studies available for comparison. INDICATIONS : Trauma. Fall. RADIATION DOSE: 31.67 CTDIvol (mGy) MEDICAL HISTORY : Stroke. Parkinsons. Seizures.Hypertension. Lupus. SURGICAL HISTORY : Hysterectomy. ENCOUNTER: Initial ACUITY: 1 day PAIN SCALE: 4/10 LOCATION: cranial TECHNIQUE: Multiple contiguous axial images were obtained of the head. Using automated exposure control and adj ustment of the mA and/or kV according to patient size, radiation dose was kept as low as reasonably a chievable to obtain optimal diagnostic quality images. DICOM format image data is available electro nically for review and comparison. FINDINGS: CEREBRUM: The ventricles are normal for age. No evidence of midline shift, mass lesion, hemorrhage or acute in farction. No extra-axial fluid collections are seen. POSTERIOR FOSSA: The cerebellum and brainstem are intact. The 4th ventricle is midline. The cerebellopontine angle i s unremarkable. EXTRACRANIAL: The visualized portion of the orbits is intact. SKULL: The calvaria is intact. No evidence of skull fracture. CONCLUSION: 1. No acute intracranial abnormality. Chronic left sphenoid sinus disease. Dillan Ricketts MD on February 27, 2018 at 3:20 Board Certified Radiologist. This report was verified electronically.
--- NOTE | 2018-02-27 03:27 | RADRPT ---
EXAM DATE/TIME: 02/27/2018 02:50 [facility] COMPARISON: No previous studies available for comparison. INDICATIONS : Trauma. Fall. RADIATION DOSE: 18.63 CTDIvol (mGy) MEDICAL HISTORY : Stroke. Seizures. Parkinsons.Lupus. Hypertension. SURGICAL HISTORY : Hysterectomy. ENCOUNTER: Initial ACUITY: 1 day PAIN SCALE: 2/10 LOCATION: neck TECHNIQUE: Volumetric scanning of the cervical spine was performed. Multiplanar reconstructions in the sagittal, coronal and oblique axial planes were performed. Using automated exposure control and adjustment o f the mA and/or kV according to patient size, radiation dose was kept as low as reasonably achievable to obtain optimal diagnostic quality images. DICOM format image data is available electronically f or review and comparison. FINDINGS: No acute fracture. Advanced degenerative change at C5-6-7 with reversal of normal cervical lordosis. No prevertebral soft tissue swelling. Moderate facet arthropathy. CONCLUSION: 1. Moderate to advanced degenerative disc disease in the lower cervical spine with reversal of normal cervical lordosis. Mild canal stenosis at C5-6-7 with bilateral neural foraminal encroachment. No ac [place] fracture. Dillan Ricketts MD on February 27, 2018 at 3:21 Board Certified Radiologist. This report was verified electronically.
--- NOTE | 2018-02-27 03:29 | RADRPT ---
EXAM DATE/TIME: 02/27/2018 02:50 [facility] COMPARISON: No previous studies available for comparison. INDICATIONS : Trauma. Fall. Laceration above right eye. RADIATION DOSE: 56.37 CTDIvol (mGy) MEDICAL HISTORY : Stroke. Seizures. Parkinsons.Lupus. Hypertension. SURGICAL HISTORY : Hysterectomy. ENCOUNTER: Initial ACUITY: 1 day PAIN SCORE: 6/10 LOCATION: Right facial TECHNIQUE: Volumetric scanning of the facial bones was performed. Using automated exposure control and adjustme nt of the mA and/or kV according to patient size, radiation dose was kept as low as reasonably achiev able to obtain optimal diagnostic quality images. DICOM format image data is available electronicall y for review and comparison. FINDINGS: ORBITS: The orbital and infraorbital osseous structures are intact. The retroconal structures have a normal configuration. No radiopaque foreign bodies are seen. NASAL BONE: The nasal bone and maxillary spine are intact ZYGOMATIC ARCHES: Symmetric without evidence of fracture. SINUSES: The maxillary, ethmoid and frontal sinuses are intact. Left sphenoid sinus is opacified with mural th ickening. No air-fluid levels seen. NASAL CAVITY: The nasal septum is intact and midline. The lacrimal ducts are intact. SOFT TISSUES: No radiopaque foreign bodies seen. No soft-tissue swelling is seen. INTRACRANIAL: No intracranial air seen. CRIBIFORM PLATE: Grossly intact. CONCLUSION: No acute bony abnormality. Chronic left sphenoid sinus disease. Dillan Ricketts MD on February 27, 2018 at 3:26 Board Certified Radiologist. This report was verified electronically.
== END 2018-02-27 03:43 | disposition home or self-care (01) ==
LOC: NEPE 00:19
DX: S09.90XA Unspecified injury of head, initial encounter (principal); M54.2 Cervicalgia; S01.81XA Laceration without foreign body of other part of head, initial encounter; M50.322 Other cervical disc degeneration at C5-C6 level; M50.323 Other cervical disc degeneration at C6-C7 level; F17.210 Nicotine dependence, cigarettes, uncomplicated; W01.0XXA Fall on same level from slipping, tripping and stumbling without subsequent striking against object, initial encounter; Z88.8 Allergy status to other drugs, medicaments and biological substances; Z79.899 Other long term (current) drug therapy
CPT/HCPCS: 70450; 70486; 72125; 99283